=== PATIENT | female | born 1960 | race Caucasian/White ===

== ENCOUNTER 2017-09-01 11:00 | Outpatient (RCR) | payer OTHER, SELFPAY ==
[2017-08-26 10:49] VITALS: BP 194/107; PULSE 77; RESP 18; TEMP 37.1
--- NOTE | 2017-08-26 16:56 | PCM.WC.HP ---
(1) Diabetic foot ulcer Status: Acute Qualifiers: Diabetic foot ulcer location: toe Diabetes mellitus type: type 2 Laterality: left Non-pressure ulcer stage: with fat layer exposed Qualified Code(s): E11.621 - Type 2 diabetes mellitus with foot ulcer; L97.522 - Non-pressure chronic ulcer of other part of left foot with fat layer exposed; L97.522 - Non-pressure chronic ulcer of other part of left foot with fat layer exposed; L97.522 - Non-pressure chronic ulcer of other part of left foot with fat layer exposed; L97.522 - Non-pressure chronic ulcer of other part of left foot with fat layer exposed Code(s): E11.621 - Type 2 diabetes mellitus with foot ulcer; L97.509 - Non-pressure chronic ulcer of other part of unspecified foot with unspecified severity (2) Diabetes mellitus type 2 in obese Status: Chronic Code(s): E11.69 - Type 2 diabetes mellitus with other specified complication; E66.9 - Obesity, unspecified (3) Diabetic neuropathy Status: Chronic Code(s): E11.40 - Type 2 diabetes mellitus with diabetic neuropathy, unspecified History of Present Illness Date of Service: 08/26/17 Chief Complaint: Chronic recurrent left foot ulcer. History of Wound: Ms. Sullivan is a 57yo with PMH of hypertension, diabetes mellitus type 2 [id number], chronic left foot ulcer and diabetic neuropathy. She was referred here by primary care physician due to chronic recurrent nonhealing left foot ulcer. Initial episode was said to be about 5 years ago about a year after her diagnosis of diabetes. Had been managed by her primary care physician on several ocassions for recurrence however current episode has persisted for over 6 months. She has a history of callus over her left great toe and had been seen by podiatry. Appropriate footwear was recommended however patient's does report that she has not been compliant with this. She also walks around barefooted a lot and does not routinely inspect her foot. She reports good control of her A1c however last check was about 6 months ago and was said to be around 6. She denies any discharge from her left foot, chills, fever, nausea, vomiting or otherwise feeling of unwell. Past Medical History Past Medical History: Chronic Problems Diabetes mellitus type 2 in obese (Chronic) Diabetic neuropathy (Chronic) Allergies/Adverse Reactions: Allergies isradipine [From [place]GE[place]] Allergy (Verified 08/26/17 10:37) Unknown prochlorperazine [From Compazine] Allergy (Verified 08/26/17 10:37) Unknown Home Medications: Ambulatory Orders Medication Instructions Recorded Acetaminophen [Tylenol Extra 1,000 mg PO Q8H PRN 08/26/17 Strength] Amlodipine [Norvasc] 5 mg PO DAILY 08/26/17 Enalapril Maleate [Vasotec] 20 mg PO BID 08/26/17 Meloxicam 15 mg PO DAILY 08/26/17 Metformin HCl [Metformin HCl ER] 1,000 mg PO DAILY 08/26/17 Metoprolol Succinate 100 mg PO BID 08/26/17 Multivitamin [Daily Multiple 1 each PO DAILY 08/26/17 Vitamin] Tizanidine HCl 4 mg PO QHS PRN PRN 08/26/17 Triamcinolone Acetonide [Kenalog] 100 gm TP BID 08/26/17 Smoking Status: Never smoker Review of Systems Constitutional: Denies: Anorexia, Chills, Fever Eyes: Denies: Pain, Redness HEENT: Denies: Difficulty Hearing, Difficulty Swallowing Cardiovascular: Denies: Chest Pain, Chest Pressure, Chest Tightness Respiratory: Denies: Cough, Hemoptysis Gastrointestinal: Denies: Abdominal Pain, Hematemesis, Vomiting Skin: Denies: Jaundice, Pruritis Neurological: Denies: Blurred vision, Slurred speech, Confusion - Physical Exam Vital Signs Temp Pulse Resp BP 98.7 F 77 18 194/107 H 08/26/17 10:49 08/26/17 10:49 08/26/17 10:49 08/26/17 10:49 General: Alert, Oriented x3, Cooperative, No apparent distress HEENT: Atraumatic, Normocephalic Oral: Moist Mucosa Neck: Supple, No JVD Lungs: Clear to auscultation, Normal air movement Cardiovascular: Regular rate, Regular Rhythm, Normal S1, Normal S2 Extremities: No clubbing, No cyanosis, No edema Wound Measurements and Assessment WC - Nurse 1 - General Ulcer Measurement Start: 08/26/17 10:34 Freq: Status: Active Protocol: Activity Type Activity Date Activity User E-Sign Co-Sign Detail Recorded Client Recorded Date Recorded By Document 08/26/17 10:49 DL [id number] 08/26/17 11:20 DL 08/26/17 10:49 Wound Center Nurse 1 [Ulcer Assessment Protocol: WC.WD.LOC] #1 L plantar met head -Current Size (cm) - Length 0.3 -Current Size (cm) - Width 0.2 -Current Size (cm) - Depth 0.4 -Total Square Cm 0.06 -Photo Taken Yes -Epithelialization None Present -Maximum Distance #2 (cm) 0.2 -Circular Undermining Yes -Exudate Amt Small (1-33%) -Exudate Type Serosanguineous -Wound Margin Thickened -Granulation Amt Small (1-33%) -Granulation Quality [place] -Necrosis Amt None Present (0 %) -Structure Exposed N/A -Texture (Gisella-wound Skin Appearance) Callus -Moisture (Gisella-wound Skin Appearance No Abnormality ) -Color (Gisella-wound Skin Appearance) No Abnormality -Temperature (Gisella-wound Skin No Abnormality Appearance) (Pt Warm) -Ulcer Cleansing Rinsed/ Irrigated with Saline -Foul Odor after Cleansing No -Anesthetic Used 4% Lidocaine Solution - Nurse 2 - General Ulcer CM Notes Start: 08/26/17 10:34 Freq: Status: Active Protocol: Activity Type Activity Date Activity User E-Sign Co-Sign Detail Recorded Client Recorded Date Recorded By Document 08/26/17 12:06 [id number] 08/26/17 12:16 DV 08/26/17 12:06 Wound Center Nurse 2 [Procedure/Treatment] -Time 12:14 -Correct Patient Yes -Correct Side, Site, Position Yes -Correct Procedure Yes -Procedure Performed Yes -Type of Procedure Debridement -Clinical Debridement Subcutaneous -Post Debridement Size (cm) - Length 0.6 -Post Debridement Size (cm) - Width 0.4 -Post Debridement Size (cm) - Depth 0.2 -Total Square Cm 0.24 -Wound/Ulcer Outcome Not Healed -Ulcer Cleansing Rinsed/ Irrigated with Saline -Foul Odor after Cleansing No -Bioengineered Tissue No -Cetacaine [place] No -Bleeding Controlled with Pressure -Treatment Response Procedure Tolerated Well [See Physician Procedure note for Specifics] Pain Scale: 0-10 Numeric [Pain] -Is Patient Pain Free? Yes Musculoskeletal: No Muscle Wasting Lymphatic: No Cervical, Supraclavicular, or Inguinal Adenopathy Neurological: Cranial nerves II-XII grossly intact Psych/Mental Status: Normal Affect Debridement Note Post-Debridement Measurements/Treatment WC - Nurse 2 - General Ulcer CM Notes Start: 08/26/17 10:34 Freq: Status: Active Protocol: Activity Type Activity Date Activity User E-Sign Co-Sign Detail Recorded Client Recorded Date Recorded By Document 08/26/17 12:06 DV [id number] 08/26/17 12:16 DV 08/26/17 12:06 Wound Center Nurse 2 #1 L plantar met head -Time 12:14 -Correct Patient Yes -Correct Side, Site, Position Yes -Correct Procedure Yes -Procedure Performed Yes -Type of Procedure Debridement -Clinical Debridement Subcutaneous -Post Debridement Size (cm) - Length 0.6 -Post Debridement Size (cm) - Width 0.4 -Post Debridement Size (cm) - Depth 0.2 -Total Square Cm 0.24 -Wound/Ulcer Outcome Not Healed -Ulcer Cleansing Rinsed/ Irrigated with Saline -Foul Odor after Cleansing No -Bioengineered Tissue No -Cetacaine [place] No -Bleeding Controlled with Pressure -Treatment Response Procedure Tolerated Well Pain Scale: 0-10 Numeric Is Patient Pain Free? Yes Wound debrided: Left plantar great toe metatarsal head wound Wound Grade/Stage: Grade II Anesthesia Used: 4% Lidocaine Solution Depth: Down to and including healthy tissue, in the subcutaneous layer Percentage of wound debrided: 100 Instrument Used: 5mm curette Tissue Removed: Slough. Bleeding Controlled with: Compression and gauze Patient tolerated procedure well Assessment/Plan Assessment: Grade 2 diabetic foot ulcer of left great toe metatarsal head. Diabetes mellitus type 2. Poorly controlled blood pressure. Plan: Chronic recurrent diabetic foot ulcer. Had been to a home care attendant in the past however patient is noncompliant with directions. Wound was debrided today, procedure well-tolerated. Culture taken. X-ray also ordered. Routine labs including CBC, CMP, A1c, prealbumin and CRP also ordered. Promogran dressing daily to the wound. Advised to follow-up with home care attendant for appropriate footwear and diabetic foot management. High-protein diet. Wear foot wear at all times. Follow-up in 1 week. This note was generated with [employer] software. It may contain incorrect words, spelling, and punctuation that were not noted in checking the note before signing.
--- NOTE | 2017-08-26 17:07 | HP.PCM_ITS ---
(1) Diabetic foot ulcer Status: Acute Qualifiers: Diabetic foot ulcer location: toe Diabetes mellitus type: type 2 Laterality: left Non-pressure ulcer stage: with fat layer exposed Qualified Code(s): E11.621 - Type 2 diabetes mellitus with foot ulcer; L97.522 - Non- pressure chronic ulcer of other part of left foot with fat layer exposed; L97.522 - Non-pressure chronic ulcer of other part of left foot with fat layer exposed; L97.522 - Non-pressure chronic ulcer of other part of left foot with fat layer exposed; L97.522 - Non-pressure chronic ulcer of other part of left foot with fat layer exposed Code(s): E11.621 - Type 2 diabetes mellitus with foot ulcer; L97.509 - Non- pressure chronic ulcer of other part of unspecified foot with unspecified severity (2) Diabetes mellitus type 2 in obese Status: Chronic Code(s): E11.69 - Type 2 diabetes mellitus with other specified complication; E66.9 - Obesity, unspecified (3) Diabetic neuropathy Status: Chronic Code(s): E11.40 - Type 2 diabetes mellitus with diabetic neuropathy, unspecified History of Present Illness Date of Service: 08/26/17 Chief Complaint: Chronic recurrent left foot ulcer. History of Wound: Ms. Sullivan is a 57yo with PMH of hypertension, diabetes mellitus type 2 [id number], chronic left foot ulcer and diabetic neuropathy. She was referred here by primary care physician due to chronic recurrent nonhealing left foot ulcer. Initial episode was said to be about 5 years ago about a year after her diagnosis of diabetes. Had been managed by her primary care physician on several ocassions for recurrence however current episode has persisted for over 6 months. She has a history of callus over her left great toe and had been seen by podiatry. Appropriate footwear was recommended however patient's does report that she has not been compliant with this. She also walks around barefooted a lot and does not routinely inspect her foot. She reports good control of her A1c however last check was about 6 months ago and was said to be around 6. She denies any discharge from her left foot, chills, fever, nausea, vomiting or otherwise feeling of unwell. Past Medical History Past Medical History: Chronic Problems Diabetes mellitus type 2 in obese (Chronic) Diabetic neuropathy (Chronic) Allergies/Adverse Reactions: Allergies isradipine [From [place]] Allergy (Verified 08/26/17 10:37) Unknown prochlorperazine [From Compazine] Allergy (Verified 08/26/17 10:37) Unknown Home Medications: Ambulatory Orders Medication Instructions Recorded Acetaminophen [Tylenol Extra 1,000 mg PO Q8H PRN 08/26/17 Strength] Amlodipine [Norvasc] 5 mg PO DAILY 08/26/17 Enalapril Maleate [Vasotec] 20 mg PO BID 08/26/17 Meloxicam 15 mg PO DAILY 08/26/17 Metformin HCl [Metformin HCl ER] 1,000 mg PO DAILY 08/26/17 Metoprolol Succinate 100 mg PO BID 08/26/17 Multivitamin [Daily Multiple 1 each PO DAILY 08/26/17 Vitamin] Tizanidine HCl 4 mg PO QHS PRN PRN 08/26/17 Triamcinolone Acetonide [Kenalog] 100 gm TP BID 08/26/17 Smoking Status: Never smoker Review of Systems Constitutional: Denies: Anorexia, Chills, Fever Eyes: Denies: Pain, Redness HEENT: Denies: Difficulty Hearing, Difficulty Swallowing Cardiovascular: Denies: Chest Pain, Chest Pressure, Chest Tightness Respiratory: Denies: Cough, Hemoptysis Gastrointestinal: Denies: Abdominal Pain, Hematemesis, Vomiting Skin: Denies: Jaundice, Pruritis Neurological: Denies: Blurred vision, Slurred speech, Confusion - Physical Exam Vital Signs Temp Pulse Resp BP 98.7 F 77 18 194/107 H 08/26/17 10:49 08/26/17 10:49 08/26/17 10:49 08/26/17 10:49 General: Alert, Oriented x3, Cooperative, No apparent distress HEENT: Atraumatic, Normocephalic Oral: Moist Mucosa Neck: Supple, No JVD Lungs: Clear to auscultation, Normal air movement Cardiovascular: Regular rate, Regular Rhythm, Normal S1, Normal S2 Extremities: No clubbing, No cyanosis, No edema Wound Measurements and Assessment WC - Nurse 1 - General Ulcer Measurement Start: 08/26/17 10:34 Freq: Status: Active Protocol: Activity Type Activity Date Activity User E-Sign Co-Sign Detail Recorded Client Recorded Date Recorded By Document 08/26/17 10:49 DL [id number] 08/26/17 11:20 DL 08/26/17 10:49 Wound Center Nurse 1 [Ulcer Assessment Protocol: WC.WD.LOC] #1 L plantar met head -Current Size (cm) - Length 0.3 -Current Size (cm) - Width 0.2 -Current Size (cm) - Depth 0.4 -Total Square Cm 0.06 -Photo Taken Yes -Epithelialization None Present -Maximum Distance #2 (cm) 0.2 -Circular Undermining Yes -Exudate Amt Small (1-33%) -Exudate Type Serosanguineous -Wound Margin Thickened -Granulation Amt Small (1-33%) -Granulation Quality [place] -Necrosis Amt None Present (0 %) -Structure Exposed N/A -Texture (Gisella-wound Skin Appearance) Callus -Moisture ([place]is[place]-wound Skin Appearance No Abnormality ) -Color ([place]isella-wound Skin Appearance) No Abnormality -Temperature ([place]-wound Skin No Abnormality Appearance) (Pt Warm) -Ulcer Cleansing Rinsed/ Irrigated with Saline -Foul Odor after Cleansing No -Anesthetic Used 4% Lidocaine Solution - Nurse 2 - General Ulcer CM Notes Start: 08/26/17 10:34 Freq: Status: Active Protocol: Activity Type Activity Date Activity User E-Sign Co-Sign Detail Recorded Client Recorded Date Recorded By Document 08/26/17 12:06 [id number] 08/26/17 12:16 DV 08/26/17 12:06 Wound Center Nurse 2 [Procedure/Treatment] -Time 12:14 -Correct Patient Yes -Correct Side, Site, Position Yes -Correct Procedure Yes -Procedure Performed Yes -Type of Procedure Debridement -Clinical Debridement Subcutaneous -Post Debridement Size (cm) - Length 0.6 -Post Debridement Size (cm) - Width 0.4 -Post Debridement Size (cm) - Depth 0.2 -Total Square Cm 0.24 -Wound/Ulcer Outcome Not Healed -Ulcer Cleansing Rinsed/ Irrigated with Saline -Foul Odor after Cleansing No -Bioengineered Tissue No -Cetacaine [place] No -Bleeding Controlled with Pressure -Treatment Response Procedure Tolerated Well [See Physician Procedure note for Specifics] Pain Scale: 0-10 Numeric [Pain] -Is Patient Pain Free? Yes Musculoskeletal: No Muscle Wasting Lymphatic: No Cervical, Supraclavicular, or Inguinal Adenopathy Neurological: Cranial nerves II-XII grossly intact Psych/Mental Status: Normal Affect Debridement Note Post-Debridement Measurements/Treatment WC - Nurse 2 - General Ulcer CM Notes Start: 08/26/17 10:34 Freq: Status: Active Protocol: Activity Type Activity Date Activity User E-Sign Co-Sign Detail Recorded Client Recorded Date Recorded By Document 08/26/17 12:06 DV [id number] 08/26/17 12:16 DV 08/26/17 12:06 Wound Center Nurse 2 #1 L plantar met head -Time 12:14 -Correct Patient Yes -Correct Side, Site, Position Yes -Correct Procedure Yes -Procedure Performed Yes -Type of Procedure Debridement -Clinical Debridement Subcutaneous -Post Debridement Size (cm) - Length 0.6 -Post Debridement Size (cm) - Width 0.4 -Post Debridement Size (cm) - Depth 0.2 -Total Square Cm 0.24 -Wound/Ulcer Outcome Not Healed -Ulcer Cleansing Rinsed/ Irrigated with Saline -Foul Odor after Cleansing No -Bioengineered Tissue No -Cetacaine [place] No -Bleeding Controlled with Pressure -Treatment Response Procedure Tolerated Well Pain Scale: 0-10 Numeric Is Patient Pain Free? Yes Wound debrided: Left plantar great toe metatarsal head wound Wound Grade/Stage: Grade II Anesthesia Used: 4% Lidocaine Solution Depth: Down to and including healthy tissue, in the subcutaneous layer Percentage of wound debrided: 100 Instrument Used: 5mm curette Tissue Removed: Slough. Bleeding Controlled with: Compression and gauze Patient tolerated procedure well Assessment/Plan Assessment: Grade 2 diabetic foot ulcer of left great toe metatarsal head. Diabetes mellitus type 2. Poorly controlled blood pressure. Plan: Chronic recurrent diabetic foot ulcer. Had been to a commutator undercutter in the past however patient is noncompliant with directions. Wound was debrided today , procedure well-tolerated. Culture taken. X-ray also ordered. Routine labs including CBC, CMP, A1c, prealbumin and CRP also ordered. Promogran dressing daily to the wound. Advised to follow-up with commutator undercutter for appropriate footwear and diabetic foot management. High-protein diet. Wear foot wear at all times. Follow-up in 1 week. This note was generated with [employer] software. It may contain incorrect words, spelling, and punctuation that were not noted in checking the note before signing.
[2017-09-01 10:56] VITALS: BP 163/88; PULSE 81; RESP 16; TEMP 37
--- NOTE | 2017-09-01 14:28 | PCM.WC.PN ---
(1) Diabetic foot ulcer Status: Acute Current Visit: Yes Qualifiers: Diabetic foot ulcer location: toe Diabetes mellitus type: type 2 Laterality: left Non-pressure ulcer stage: with fat layer exposed Qualified Code(s): E11.621 - Type 2 diabetes mellitus with foot ulcer; L97.522 - Non-pressure chronic ulcer of other part of left foot with fat layer exposed; L97.522 - Non-pressure chronic ulcer of other part of left foot with fat layer exposed; L97.522 - Non-pressure chronic ulcer of other part of left foot with fat layer exposed; L97.522 - Non-pressure chronic ulcer of other part of left foot with fat layer exposed Code(s): E11.621 - Type 2 diabetes mellitus with foot ulcer; L97.509 - Non-pressure chronic ulcer of other part of unspecified foot with unspecified severity (2) Diabetes mellitus type 2 in obese Status: Chronic Current Visit: No Code(s): E11.69 - Type 2 diabetes mellitus with other specified complication; E66.9 - Obesity, unspecified (3) Diabetic neuropathy Status: Chronic Current Visit: No Code(s): E11.40 - Type 2 diabetes mellitus with diabetic neuropathy, unspecified Type of Wound Date of Service: 09/01/17 Chief Complaint: Chronic recurrent left foot ulcer. History of Wound: Ms. Sullivan is a 57yo with PMH of hypertension, diabetes mellitus type 2 [id number], chronic left foot ulcer and diabetic neuropathy. She was referred here by primary care physician due to chronic recurrent nonhealing left foot ulcer. Initial episode was said to be about 5 years ago about a year after her diagnosis of diabetes. Had been managed by her primary care physician on several ocassions for recurrence however current episode has persisted for over 6 months. She has a history of callus over her left great toe and had been seen by podiatry. Appropriate footwear was recommended however patient's does report that she has not been compliant with this. She also walks around barefooted a lot and does not routinely inspect her foot. She reports good control of her A1c however last check was about 6 months ago and was said to be around 6. She denies any discharge from her left foot, chills, fever, nausea, vomiting or otherwise feeling of unwell. Progress of Wound: Stable. No new complaints at this time. Yet to follow up with podiatry. - Physical Exam Vital Signs Temp Pulse Resp BP 98.6 F 81 16 163/88 H 09/01/17 10:56 09/01/17 10:56 09/01/17 10:56 09/01/17 10:56 General: Alert, Oriented x3, Cooperative, No apparent distress HEENT: Atraumatic, Normocephalic Oral: Moist Mucosa Neck: Supple, No JVD Lungs: Normal air movement Cardiovascular: Regular rate Wound Measurements and Assessment - Nurse 1 - General Ulcer Measurement Start: 08/26/17 10:34 Freq: Status: Active Protocol: Activity Type Activity Date Activity User E-Sign Co-Sign Detail Recorded Client Recorded Date Recorded By Document 09/01/17 10:56 [facility] [id number] 09/01/17 11:09 [facility] 09/01/17 10:56 Wound Center Nurse 1 [Ulcer Assessment Protocol: WC.WD.LOC] #1 L plantar met head -Combined with other wound No -Current Size (cm) - Length 0.6 -Current Size (cm) - Width 0.4 -Current Size (cm) - Depth 0.4 -Total Square Cm 0.24 -Photo Taken No -Epithelialization None Present -Tunneling No -Undermining/Tunneling No -Exudate Amt Small (1-33%) -Exudate Type Serosanguineous -Wound Margin Distinct, Outline Attached -Granulation Amt Large (67-100%) -Granulation Quality Red -Slough/Fibrin No -Necrosis Amt None Present (0 %) -Structure Exposed N/A -Texture (Gisella-wound Skin Appearance) Callus Scarring -Moisture (Gisella-wound Skin Appearance Dry/Scaly ) -Color (Gisella-wound Skin Appearance) Assessed -Temperature (Gisella-wound Skin No Abnormality Appearance) (Pt Warm) -Tenderness on Palpation (Gisella-wound No Skin Appearance) -Ulcer Cleansing Rinsed/ Irrigated with Saline -Foul Odor after Cleansing No -Anesthetic Used 5% Lidocaine Gel - Nurse 2 - General Ulcer CM Notes Start: 08/26/17 10:34 Freq: Status: Active Protocol: Activity Type Activity Date Activity User E-Sign Co-Sign Detail Recorded Client Recorded Date Recorded By Document 09/01/17 11:44 DV [id number] 09/01/17 11:56 DV 09/01/17 11:44 Wound Center Nurse 2 [Procedure/Treatment] -Time 11:45 -Correct Patient Yes -Correct Side, Site, Position Yes -Correct Procedure Yes -Procedure Performed Yes -Type of Procedure Debridement -Clinical Debridement Subcutaneous -Post Debridement Size (cm) - Length 0.5 -Post Debridement Size (cm) - Width 0.5 -Post Debridement Size (cm) - Depth 0.5 -Total Square Cm 0.25 -Wound/Ulcer Outcome Not Healed -Ulcer Cleansing Rinsed/ Irrigated with Saline -Foul Odor after Cleansing No -Bioengineered Tissue No -Cetacaine [place] No -Bleeding Controlled with Pressure -Treatment Response Procedure Tolerated Well [See Physician Procedure note for Specifics] Pain Scale: 0-10 Numeric [Pain] -Is Patient Pain Free? Yes Debridement Note Post-Debridement Measurements/Treatment WC - Nurse 2 - General Ulcer CM Notes Start: 08/26/17 10:34 Freq: Status: Active Protocol: Activity Type Activity Date Activity User E-Sign Co-Sign Detail Recorded Client Recorded Date Recorded By Document 08/26/17 12:06 DV [id number] 08/26/17 12:16 DV Document 09/01/17 11:44 DV [id number] 09/01/17 11:56 DV 08/26/17 09/01/17 12:06 11:44 Wound Center Nurse 2 #1 L plantar met head -Time 12:14 11:45 -Correct Patient Yes Yes -Correct Side, Site, Position Yes Yes -Correct Procedure Yes Yes -Procedure Performed Yes Yes -Type of Procedure Debridement Debridement -Clinical Debridement Subcutaneous Subcutaneous -Post Debridement Size (cm) - Length 0.6 0.5 -Post Debridement Size (cm) - Width 0.4 0.5 -Post Debridement Size (cm) - Depth 0.2 0.5 -Total Square Cm 0.24 0.25 -Wound/Ulcer Outcome Not Healed Not Healed -Ulcer Cleansing Rinsed/ Rinsed/ Irrigated with Irrigated with Saline Saline -Foul Odor after Cleansing No No -Bioengineered Tissue No No -Cetacaine [place] No No -Bleeding Controlled with Pressure Pressure -Treatment Response Procedure Procedure Tolerated Well Tolerated Well Pain Scale: 0-10 Numeric Is Patient Pain Free? Yes Yes Wound debrided: Left foot wound. Wound Grade/Stage: DFU Grade II Type of Debridement: Excisional debridement Anesthesia Used: 5% Lidocaine Gel Depth: Down to and including healthy tissue, in the subcutaneous layer Percentage of wound debrided: 100 Instrument Used: 5mm curette Tissue Removed: Slough, Callus. Amount of bleeding with debridement: Mild Bleeding Controlled with: Pressure Patient tolerated procedure well Assessment/Plan Active Problems Diabetic foot ulcer (Acute) Assessment: Grade 2 diabetic foot ulcer of left great toe metatarsal head. Diabetes mellitus type 2. Poorly controlled blood pressure. Plan: Debridement and scraping of the callus was done today. Procedure well-tolerated. Patient is yet to follow-up with a assembler mechanical ordnance she plans to within the week. A1c of 7.4. I did discuss with the patient on the need to adequately and optimally control her sugars. She is open to this. X-ray also not suggestive of osteomyelitis. Continue Promogran dressing daily. Protein rich diet. Wear foot wear at all times. Follow-up in 1 week. This note was generated with [employer] dictation software. It may contain incorrect words, spelling, and punctuation that were not noted in checking the note before signing.
--- NOTE | 2017-09-01 14:32 | PN.PCM_ITS ---
(1) Diabetic foot ulcer Status: Acute Current Visit: Yes Qualifiers: Diabetic foot ulcer location: toe Diabetes mellitus type: type 2 Laterality: left Non-pressure ulcer stage: with fat layer exposed Qualified Code(s): E11.621 - Type 2 diabetes mellitus with foot ulcer; L97.522 - Non- pressure chronic ulcer of other part of left foot with fat layer exposed; L97.522 - Non-pressure chronic ulcer of other part of left foot with fat layer exposed; L97.522 - Non-pressure chronic ulcer of other part of left foot with fat layer exposed; L97.522 - Non-pressure chronic ulcer of other part of left foot with fat layer exposed Code(s): E11.621 - Type 2 diabetes mellitus with foot ulcer; L97.509 - Non- pressure chronic ulcer of other part of unspecified foot with unspecified severity (2) Diabetes mellitus type 2 in obese Status: Chronic Current Visit: No Code(s): E11.69 - Type 2 diabetes mellitus with other specified complication; E66.9 - Obesity, unspecified (3) Diabetic neuropathy Status: Chronic Current Visit: No Code(s): E11.40 - Type 2 diabetes mellitus with diabetic neuropathy, unspecified Type of Wound Date of Service: 09/01/17 Chief Complaint: Chronic recurrent left foot ulcer. History of Wound: Ms. Sullivan is a 57yo with PMH of hypertension, diabetes mellitus type 2 [id number], chronic left foot ulcer and diabetic neuropathy. She was referred here by primary care physician due to chronic recurrent nonhealing left foot ulcer. Initial episode was said to be about 5 years ago about a year after her diagnosis of diabetes. Had been managed by her primary care physician on several ocassions for recurrence however current episode has persisted for over 6 months. She has a history of callus over her left great toe and had been seen by podiatry. Appropriate footwear was recommended however patient's does report that she has not been compliant with this. She also walks around barefooted a lot and does not routinely inspect her foot. She reports good control of her A1c however last check was about 6 months ago and was said to be around 6. She denies any discharge from her left foot, chills, fever, nausea, vomiting or otherwise feeling of unwell. Progress of Wound: Stable. No new complaints at this time. Yet to follow up with podiatry. - Physical Exam Vital Signs Temp Pulse Resp BP 98.6 F 81 16 163/88 H 09/01/17 10:56 09/01/17 10:56 09/01/17 10:56 09/01/17 10:56 General: Alert, Oriented x3, Cooperative, No apparent distress HEENT: Atraumatic, Normocephalic Oral: Moist Mucosa Neck: Supple, No JVD Lungs: Normal air movement Cardiovascular: Regular rate Wound Measurements and Assessment - Nurse 1 - General Ulcer Measurement Start: 08/26/17 10:34 Freq: Status: Active Protocol: Activity Type Activity Date Activity User E-Sign Co-Sign Detail Recorded Client Recorded Date Recorded By Document 09/01/17 10:56 [facility] [id number] 09/01/17 11:09 [facility] 09/01/17 10:56 Wound Center Nurse 1 [Ulcer Assessment Protocol: WC.WD.LOC] #1 L plantar met head -Combined with other wound No -Current Size (cm) - Length 0.6 -Current Size (cm) - Width 0.4 -Current Size (cm) - Depth 0.4 -Total Square Cm 0.24 -Photo Taken No -Epithelialization None Present -Tunneling No -Undermining/Tunneling No -Exudate Amt Small (1-33%) -Exudate Type Serosanguineous -Wound Margin Distinct, Outline Attached -Granulation Amt Large (67-100%) -Granulation Quality Red -Slough/Fibrin No -Necrosis Amt None Present (0 %) -Structure Exposed N/A -Texture (Gisella-wound Skin Appearance) Callus Scarring -Moisture (Gisella-wound Skin Appearance Dry/Scaly ) -Color (Gisella-wound Skin Appearance) Assessed -Temperature (Gisella-wound Skin No Abnormality Appearance) (Pt Warm) -Tenderness on Palpation (Gisella-wound No Skin Appearance) -Ulcer Cleansing Rinsed/ Irrigated with Saline -Foul Odor after Cleansing No -Anesthetic Used 5% Lidocaine Gel - Nurse 2 - General Ulcer CM Notes Start: 08/26/17 10:34 Freq: Status: Active Protocol: Activity Type Activity Date Activity User E-Sign Co-Sign Detail Recorded Client Recorded Date Recorded By Document 09/01/17 11:44 DV [id number] 09/01/17 11:56 DV 09/01/17 11:44 Wound Center Nurse 2 [Procedure/Treatment] -Time 11:45 -Correct Patient Yes -Correct Side, Site, Position Yes -Correct Procedure Yes -Procedure Performed Yes -Type of Procedure Debridement -Clinical Debridement Subcutaneous -Post Debridement Size (cm) - Length 0.5 -Post Debridement Size (cm) - Width 0.5 -Post Debridement Size (cm) - Depth 0.5 -Total Square Cm 0.25 -Wound/Ulcer Outcome Not Healed -Ulcer Cleansing Rinsed/ Irrigated with Saline -Foul Odor after Cleansing No -Bioengineered Tissue No -Cetacaine [place] No -Bleeding Controlled with Pressure -Treatment Response Procedure Tolerated Well [See Physician Procedure note for Specifics] Pain Scale: 0-10 Numeric [Pain] -Is Patient Pain Free? Yes Debridement Note Post-Debridement Measurements/Treatment WC - Nurse 2 - General Ulcer CM Notes Start: 08/26/17 10:34 Freq: Status: Active Protocol: Activity Type Activity Date Activity User E-Sign Co-Sign Detail Recorded Client Recorded Date Recorded By Document 08/26/17 12:06 DV [id number] 08/26/17 12:16 DV Document 09/01/17 11:44 DV [id number] 09/01/17 11:56 DV 08/26/17 09/01/17 12:06 11:44 Wound Center Nurse 2 #1 L plantar met head -Time 12:14 11:45 -Correct Patient Yes Yes -Correct Side, Site, Position Yes Yes -Correct Procedure Yes Yes -Procedure Performed Yes Yes -Type of Procedure Debridement Debridement -Clinical Debridement Subcutaneous Subcutaneous -Post Debridement Size (cm) - Length 0.6 0.5 -Post Debridement Size (cm) - Width 0.4 0.5 -Post Debridement Size (cm) - Depth 0.2 0.5 -Total Square Cm 0.24 0.25 -Wound/Ulcer Outcome Not Healed Not Healed -Ulcer Cleansing Rinsed/ Rinsed/ Irrigated with Irrigated with Saline Saline -Foul Odor after Cleansing No No -Bioengineered Tissue No No -Cetacaine [place] No No -Bleeding Controlled with Pressure Pressure -Treatment Response Procedure Procedure Tolerated Well Tolerated Well Pain Scale: 0-10 Numeric Is Patient Pain Free? Yes Yes Wound debrided: Left foot wound. Wound Grade/Stage: DFU Grade II Type of Debridement: Excisional debridement Anesthesia Used: 5% Lidocaine Gel Depth: Down to and including healthy tissue, in the subcutaneous layer Percentage of wound debrided: 100 Instrument Used: 5mm curette Tissue Removed: Slough, Callus. Amount of bleeding with debridement: Mild Bleeding Controlled with: Pressure Patient tolerated procedure well Assessment/Plan Active Problems Diabetic foot ulcer (Acute) Assessment: Grade 2 diabetic foot ulcer of left great toe metatarsal head. Diabetes mellitus type 2. Poorly controlled blood pressure. Plan: Debridement and scraping of the callus was done today. Procedure well- tolerated. Patient is yet to follow-up with a traffic survey technician she plans to within the week. A1c of 7.4. I did discuss with the patient on the need to adequately and optimally control her sugars. She is open to this. X-ray also not suggestive of osteomyelitis. Continue Promogran dressing daily. Protein rich diet. Wear foot wear at all times. Follow-up in 1 week. This note was generated with [employer] dictation software. It may contain incorrect words, spelling, and punctuation that were not noted in checking the note before signing.
== END 2017-09-05 23:59 ==
LOC: WC 11:00
PROVIDERS: Family Provider Family Medicine; PCP Family Medicine; Visit Provider Internal Medicine
DX: E11.621 Type 2 diabetes mellitus with foot ulcer (principal); E11.40 Type 2 diabetes mellitus with diabetic neuropathy, unspecified; L97.522 Non-pressure chronic ulcer of other part of left foot with fat layer exposed; E66.9 Obesity, unspecified; Z71.3 Dietary counseling and surveillance; Z91.19 Patient's noncompliance with other medical treatment and regimen
CPT/HCPCS: 11042; 87070; 87075; 87077; 87186; 87205; 99213; G0463

== ENCOUNTER 2017-09-30 08:30 | Outpatient (RCR) | payer OTHER, SELFPAY ==
[2017-09-06 01:41] VITALS: BP 163/88; PULSE 81; RESP 16; TEMP 37
[2017-09-09 08:29] VITALS: BP 164/94; PULSE 80; RESP 18; TEMP 37
--- NOTE | 2017-09-09 09:37 | PCM.WC.PN ---
(1) Diabetic foot ulcer Status: Acute Qualifiers: Code(s): E11.621 - Type 2 diabetes mellitus with foot ulcer; L97.509 - Non-pressure chronic ulcer of other part of unspecified foot with unspecified severity (2) Diabetes mellitus type 2 in obese Status: Chronic Code(s): E11.69 - Type 2 diabetes mellitus with other specified complication; E66.9 - Obesity, unspecified (3) Diabetic neuropathy Status: Chronic Code(s): E11.40 - Type 2 diabetes mellitus with diabetic neuropathy, unspecified Type of Wound Date of Service: 09/09/17 Chief Complaint: Chronic recurrent left foot ulcer. History of Wound: Ms. Sullivan is a 57yo with PMH of hypertension, diabetes mellitus type 2 [id number], chronic left foot ulcer and diabetic neuropathy. She was referred here by primary care physician due to chronic recurrent nonhealing left foot ulcer. Initial episode was said to be about 5 years ago about a year after her diagnosis of diabetes. Had been managed by her primary care physician on several ocassions for recurrence however current episode has persisted for over 6 months. She has a history of callus over her left great toe and had been seen by podiatry. Appropriate footwear was recommended however patient's does report that she has not been compliant with this. She also walks around barefooted a lot and does not routinely inspect her foot. She reports good control of her A1c however last check was about 6 months ago and was said to be around 6. She denies any discharge from her left foot, chills, fever, nausea, vomiting or otherwise feeling of unwell. Progress of Wound: Stable. No new complaints at this time. Followed up with Dr. Merlos. Started an offloading boot. - Physical Exam Vital Signs Temp Pulse Resp BP 98.6 F 80 18 164/94 H 09/09/17 08:29 09/09/17 08:29 09/09/17 08:29 09/09/17 08:29 General: Alert, Oriented x3, Cooperative, No apparent distress HEENT: Atraumatic, Normocephalic Oral: Moist Mucosa Neck: Supple Lungs: Normal air movement Cardiovascular: Regular rate Extremities: No clubbing, No cyanosis Wound Measurements and Assessment WC - Nurse 1 - General Ulcer Measurement Start: 09/09/17 08:29 Freq: Status: Active Protocol: Activity Type Activity Date Activity User E-Sign Co-Sign Detail Recorded Client Recorded Date Recorded By Document 09/09/17 08:29 DL [id number] 09/09/17 08:39 DL 09/09/17 08:29 Wound Center Nurse 1 [Ulcer Assessment Protocol: WC.WD.LOC] #1 L plantar met head -Current Size (cm) - Length 0.6 -Current Size (cm) - Width 0.5 -Current Size (cm) - Depth 0.2 -Total Square Cm 0.30 -Photo Taken No -Exudate Amt None Present (0 %) -Wound Margin Distinct, Outline Attached -Granulation Amt Large (67-100%) -Granulation Quality Red -Necrosis Amt Small (1-33%) -Necrotic Tissue Type Adherent Slough -Structure Exposed N/A -Texture (Gisella-wound Skin Appearance) No Abnormality -Moisture (Gisella-wound Skin Appearance No Abnormality ) -Color (Gisella-wound Skin Appearance) No Abnormality -Temperature (Gisella-wound Skin No Abnormality Appearance) (Pt Warm) -Ulcer Cleansing Rinsed/ Irrigated with Saline -Foul Odor after Cleansing No -Anesthetic Used 4% Lidocaine Solution - Nurse 2 - General Ulcer CM Notes Start: 09/09/17 08:29 Freq: Status: Active Protocol: Activity Type Activity Date Activity User E-Sign Co-Sign Detail Recorded Client Recorded Date Recorded By Document 09/09/17 08:58 DV [id number] 09/09/17 09:00 DV 09/09/17 08:58 Wound Center Nurse 2 [Procedure/Treatment] -Time 08:59 -Correct Patient Yes -Correct Side, Site, Position Yes -Correct Procedure Yes -Procedure Performed Yes -Type of Procedure Debridement -Clinical Debridement Subcutaneous -Post Debridement Size (cm) - Length 0.7 -Post Debridement Size (cm) - Width 0.5 -Post Debridement Size (cm) - Depth 0.2 -Total Square Cm 0.35 -Wound/Ulcer Outcome Not Healed -Ulcer Cleansing Rinsed/ Irrigated with Saline -Foul Odor after Cleansing No -Bioengineered Tissue No -Cetacaine [place] No -Bleeding Controlled with Pressure -Treatment Response Procedure Tolerated Well [See Physician Procedure note for Specifics] Pain Scale: 0-10 Numeric [Pain] -Is Patient Pain Free? Yes Musculoskeletal: No Muscle Wasting Neurological: Cranial nerves II-XII grossly intact Debridement Note Post-Debridement Measurements/Treatment WC - Nurse 2 - General Ulcer CM Notes Start: 09/09/17 08:29 Freq: Status: Active Protocol: Activity Type Activity Date Activity User E-Sign Co-Sign Detail Recorded Client Recorded Date Recorded By Document 09/09/17 08:58 DV [id number] 09/09/17 09:00 DV 09/09/17 08:58 Wound Center Nurse 2 #1 L plantar met head -Time 08:59 -Correct Patient Yes -Correct Side, Site, Position Yes -Correct Procedure Yes -Procedure Performed Yes -Type of Procedure Debridement -Clinical Debridement Subcutaneous -Post Debridement Size (cm) - Length 0.7 -Post Debridement Size (cm) - Width 0.5 -Post Debridement Size (cm) - Depth 0.2 -Total Square Cm 0.35 -Wound/Ulcer Outcome Not Healed -Ulcer Cleansing Rinsed/ Irrigated with Saline -Foul Odor after Cleansing No -Bioengineered Tissue No -Cetacaine [place] No -Bleeding Controlled with Pressure -Treatment Response Procedure Tolerated Well Pain Scale: 0-10 Numeric Is Patient Pain Free? Yes Wound debrided: Left Foot Plantar Ulcer Wound Grade/Stage: [place] Grade I Type of Debridement: Excisional debridement Anesthesia Used: 4% Lidocaine Solution Depth: Down to and including healthy tissue, in the subcutaneous layer Percentage of wound debrided: 100 Instrument Used: 5mm curette Tissue Removed: Slough, Callus. Amount of bleeding with debridement: Mild Bleeding Controlled with: Pressure Patient tolerated procedure well Assessment/Plan Assessment: Grade 1 diabetic foot ulcer of left great toe metatarsal head. Diabetes mellitus type 2. Poorly controlled blood pressure. Plan: Wound has remained stable so far. Did follow-up with podiatry and now has an offloading boot which she attests to wearing daily. Also followed up with her primary care physician and has had adjustments to her diabetes medications. Continue Promogran dressing daily. Continue protein rich diet. Continue antibiotics to complete 2 weeks. Wear foot wear at all times. Follow-up in 1 week. This note was generated with [employer] dictation software. It may contain incorrect words, spelling, and punctuation that were not noted in checking the note before signing.
--- NOTE | 2017-09-09 09:44 | PN.PCM_ITS ---
(1) Diabetic foot ulcer Status: Acute Qualifiers: Code(s): E11.621 - Type 2 diabetes mellitus with foot ulcer; L97.509 - Non- pressure chronic ulcer of other part of unspecified foot with unspecified severity (2) Diabetes mellitus type 2 in obese Status: Chronic Code(s): E11.69 - Type 2 diabetes mellitus with other specified complication; E66.9 - Obesity, unspecified (3) Diabetic neuropathy Status: Chronic Code(s): E11.40 - Type 2 diabetes mellitus with diabetic neuropathy, unspecified Type of Wound Date of Service: 09/09/17 Chief Complaint: Chronic recurrent left foot ulcer. History of Wound: Ms. Sullivan is a 57yo with PMH of hypertension, diabetes mellitus type 2 [id number], chronic left foot ulcer and diabetic neuropathy. She was referred here by primary care physician due to chronic recurrent nonhealing left foot ulcer. Initial episode was said to be about 5 years ago about a year after her diagnosis of diabetes. Had been managed by her primary care physician on several ocassions for recurrence however current episode has persisted for over 6 months. She has a history of callus over her left great toe and had been seen by podiatry. Appropriate footwear was recommended however patient's does report that she has not been compliant with this. She also walks around barefooted a lot and does not routinely inspect her foot. She reports good control of her A1c however last check was about 6 months ago and was said to be around 6. She denies any discharge from her left foot, chills, fever, nausea, vomiting or otherwise feeling of unwell. Progress of Wound: Stable. No new complaints at this time. Followed up with Dr. Merlos. Started an offloading boot. - Physical Exam Vital Signs Temp Pulse Resp BP 98.6 F 80 18 164/94 H 09/09/17 08:29 09/09/17 08:29 09/09/17 08:29 09/09/17 08:29 General: Alert, Oriented x3, Cooperative, No apparent distress HEENT: Atraumatic, Normocephalic Oral: Moist Mucosa Neck: Supple Lungs: Normal air movement Cardiovascular: Regular rate Extremities: No clubbing, No cyanosis Wound Measurements and Assessment WC - Nurse 1 - General Ulcer Measurement Start: 09/09/17 08:29 Freq: Status: Active Protocol: Activity Type Activity Date Activity User E-Sign Co-Sign Detail Recorded Client Recorded Date Recorded By Document 09/09/17 08:29 DL [id number] 09/09/17 08:39 DL 09/09/17 08:29 Wound Center Nurse 1 [Ulcer Assessment Protocol: WC.WD.LOC] #1 L plantar met head -Current Size (cm) - Length 0.6 -Current Size (cm) - Width 0.5 -Current Size (cm) - Depth 0.2 -Total Square Cm 0.30 -Photo Taken No -Exudate Amt None Present (0 %) -Wound Margin Distinct, Outline Attached -Granulation Amt Large (67-100%) -Granulation Quality Red -Necrosis Amt Small (1-33%) -Necrotic Tissue Type Adherent Slough -Structure Exposed N/A -Texture (Gisella-wound Skin Appearance) No Abnormality -Moisture (Gisella-wound Skin Appearance No Abnormality ) -Color (Gisella-wound Skin Appearance) No Abnormality -Temperature (Gisella-wound Skin No Abnormality Appearance) (Pt Warm) -Ulcer Cleansing Rinsed/ Irrigated with Saline -Foul Odor after Cleansing No -Anesthetic Used 4% Lidocaine Solution - Nurse 2 - General Ulcer CM Notes Start: 09/09/17 08:29 Freq: Status: Active Protocol: Activity Type Activity Date Activity User E-Sign Co-Sign Detail Recorded Client Recorded Date Recorded By Document 09/09/17 08:58 DV [id number] 09/09/17 09:00 DV 09/09/17 08:58 Wound Center Nurse 2 [Procedure/Treatment] -Time 08:59 -Correct Patient Yes -Correct Side, Site, Position Yes -Correct Procedure Yes -Procedure Performed Yes -Type of Procedure Debridement -Clinical Debridement Subcutaneous -Post Debridement Size (cm) - Length 0.7 -Post Debridement Size (cm) - Width 0.5 -Post Debridement Size (cm) - Depth 0.2 -Total Square Cm 0.35 -Wound/Ulcer Outcome Not Healed -Ulcer Cleansing Rinsed/ Irrigated with Saline -Foul Odor after Cleansing No -Bioengineered Tissue No -Cetacaine [place] No -Bleeding Controlled with Pressure -Treatment Response Procedure Tolerated Well [See Physician Procedure note for Specifics] Pain Scale: 0-10 Numeric [Pain] -Is Patient Pain Free? Yes Musculoskeletal: No Muscle Wasting Neurological: Cranial nerves II-XII grossly intact Debridement Note Post-Debridement Measurements/Treatment WC - Nurse 2 - General Ulcer CM Notes Start: 09/09/17 08:29 Freq: Status: Active Protocol: Activity Type Activity Date Activity User E-Sign Co-Sign Detail Recorded Client Recorded Date Recorded By Document 09/09/17 08:58 DV [id number] 09/09/17 09:00 DV 09/09/17 08:58 Wound Center Nurse 2 #1 L plantar met head -Time 08:59 -Correct Patient Yes -Correct Side, Site, Position Yes -Correct Procedure Yes -Procedure Performed Yes -Type of Procedure Debridement -Clinical Debridement Subcutaneous -Post Debridement Size (cm) - Length 0.7 -Post Debridement Size (cm) - Width 0.5 -Post Debridement Size (cm) - Depth 0.2 -Total Square Cm 0.35 -Wound/Ulcer Outcome Not Healed -Ulcer Cleansing Rinsed/ Irrigated with Saline -Foul Odor after Cleansing No -Bioengineered Tissue No -Cetacaine [place] No -Bleeding Controlled with Pressure -Treatment Response Procedure Tolerated Well Pain Scale: 0-10 Numeric Is Patient Pain Free? Yes Wound debrided: Left Foot Plantar Ulcer Wound Grade/Stage: [place] Grade I Type of Debridement: Excisional debridement Anesthesia Used: 4% Lidocaine Solution Depth: Down to and including healthy tissue, in the subcutaneous layer Percentage of wound debrided: 100 Instrument Used: 5mm curette Tissue Removed: Slough, Callus. Amount of bleeding with debridement: Mild Bleeding Controlled with: Pressure Patient tolerated procedure well Assessment/Plan Assessment: Grade 1 diabetic foot ulcer of left great toe metatarsal head. Diabetes mellitus type 2. Poorly controlled blood pressure. Plan: Wound has remained stable so far. Did follow-up with podiatry and now has an offloading boot which she attests to wearing daily. Also followed up with her primary care physician and has had adjustments to her diabetes medications. Continue Promogran dressing daily. Continue protein rich diet. Continue antibiotics to complete 2 weeks. Wear foot wear at all times. Follow- up in 1 week. This note was generated with [employer] dictation software. It may contain incorrect words, spelling, and punctuation that were not noted in checking the note before signing.
[2017-09-16 08:35] VITALS: BP 152/98; PULSE 76; RESP 18; TEMP 36.6
--- NOTE | 2017-09-16 19:06 | PCM.WC.PN ---
(1) Diabetic foot ulcer Status: Acute Current Visit: No Qualifiers: Code(s): E11.621 - Type 2 diabetes mellitus with foot ulcer; L97.509 - Non-pressure chronic ulcer of other part of unspecified foot with unspecified severity (2) Diabetes mellitus type 2 in obese Status: Chronic Current Visit: No Code(s): E11.69 - Type 2 diabetes mellitus with other specified complication; E66.9 - Obesity, unspecified (3) Diabetic neuropathy Status: Chronic Current Visit: No Code(s): E11.40 - Type 2 diabetes mellitus with diabetic neuropathy, unspecified Type of Wound Date of Service: 09/16/17 Chief Complaint: Chronic recurrent left foot ulcer. History of Wound: Ms. Sullivan is a 57yo with PMH of hypertension, diabetes mellitus type 2 [id number], chronic left foot ulcer and diabetic neuropathy. She was referred here by primary care physician due to chronic recurrent nonhealing left foot ulcer. Initial episode was said to be about 5 years ago about a year after her diagnosis of diabetes. Had been managed by her primary care physician on several ocassions for recurrence however current episode has persisted for over 6 months. She has a history of callus over her left great toe and had been seen by podiatry. Appropriate footwear was recommended however patient's does report that she has not been compliant with this. She also walks around barefooted a lot and does not routinely inspect her foot. She reports good control of her A1c however last check was about 6 months ago and was said to be around 6. She denies any discharge from her left foot, chills, fever, nausea, vomiting or otherwise feeling of unwell. Progress of Wound: Stable. No new complaints at this time. - Physical Exam Vital Signs Temp Pulse Resp BP 97.8 F 76 18 152/98 H 09/16/17 08:35 09/16/17 08:35 09/16/17 08:35 09/16/17 08:35 General: Alert, Oriented x3, Cooperative, No apparent distress HEENT: Atraumatic, Normocephalic Oral: Moist Mucosa Neck: Supple Lungs: Normal air movement Cardiovascular: Regular rate Extremities: No clubbing, No cyanosis Wound Measurements and Assessment WC - Nurse 1 - General Ulcer Measurement Start: 09/09/17 08:29 Freq: Status: Active Protocol: Activity Type Activity Date Activity User E-Sign Co-Sign Detail Recorded Client Recorded Date Recorded By Document 09/16/17 08:35 DL [id number] 09/16/17 08:44 DL 09/16/17 08:35 Wound Center Nurse 1 [Ulcer Assessment Protocol: WC.WD.LOC] #1 L plantar met head -Current Size (cm) - Length 0.5 -Current Size (cm) - Width 0.5 -Current Size (cm) - Depth 0.4 -Total Square Cm 0.25 -Photo Taken No -Maximum Distance #2 (cm) 0.2 -Circular Undermining Yes -Exudate Amt Small (1-33%) -Exudate Type Serosanguineous -Wound Margin Distinct, Outline Attached -Granulation Amt Small (1-33%) -Granulation Quality [place] -Necrosis Amt Small (1-33%) -Necrotic Tissue Type Adherent Slough -Structure Exposed N/A -Texture (Gisella-wound Skin Appearance) Callus -Moisture (Gisella-wound Skin Appearance Dry/Scaly ) -Color (Gisella-wound Skin Appearance) No Abnormality -Temperature (Gisella-wound Skin No Abnormality Appearance) (Pt Warm) -Tenderness on Palpation (Gisella-wound No Skin Appearance) -Ulcer Cleansing Rinsed/ Irrigated with Saline -Foul Odor after Cleansing No -Anesthetic Used 4% Lidocaine Solution - Nurse 2 - General Ulcer CM Notes Start: 09/09/17 08:29 Freq: Status: Active Protocol: Activity Type Activity Date Activity User E-Sign Co-Sign Detail Recorded Client Recorded Date Recorded By Document 09/16/17 09:20 DV [id number] 09/16/17 09:22 DV 09/16/17 09:20 Wound Center Nurse 2 [Procedure/Treatment] -Time 09:20 -Correct Patient Yes -Correct Side, Site, Position Yes -Correct Procedure Yes -Procedure Performed Yes -Type of Procedure Debridement -Clinical Debridement Subcutaneous -Post Debridement Size (cm) - Length 0.4 -Post Debridement Size (cm) - Width 0.9 -Post Debridement Size (cm) - Depth 0.2 -Total Square Cm 0.36 -Wound/Ulcer Outcome Not Healed -Ulcer Cleansing Rinsed/ Irrigated with Saline -Foul Odor after Cleansing No -Bioengineered Tissue No -Cetacaine [place] No -Bleeding Controlled with Pressure -Treatment Response Procedure Tolerated Well [See Physician Procedure note for Specifics] Pain Scale: 0-10 Numeric [Pain] -Is Patient Pain Free? Yes Musculoskeletal: No Muscle Wasting Debridement Note Post-Debridement Measurements/Treatment WC - Nurse 2 - General Ulcer CM Notes Start: 09/09/17 08:29 Freq: Status: Active Protocol: Activity Type Activity Date Activity User E-Sign Co-Sign Detail Recorded Client Recorded Date Recorded By Document 09/09/17 08:58 DV [id number] 09/09/17 09:00 DV Document 09/16/17 09:20 DV [id number] 09/16/17 09:22 DV 09/09/17 09/16/17 08:58 09:20 Wound Center Nurse 2 #1 L plantar met head -Time 08:59 09:20 -Correct Patient Yes Yes -Correct Side, Site, Position Yes Yes -Correct Procedure Yes Yes -Procedure Performed Yes Yes -Type of Procedure Debridement Debridement -Clinical Debridement Subcutaneous Subcutaneous -Post Debridement Size (cm) - Length 0.7 0.4 -Post Debridement Size (cm) - Width 0.5 0.9 -Post Debridement Size (cm) - Depth 0.2 0.2 -Total Square Cm 0.35 0.36 -Wound/Ulcer Outcome Not Healed Not Healed -Ulcer Cleansing Rinsed/ Rinsed/ Irrigated with Irrigated with Saline Saline -Foul Odor after Cleansing No No -Bioengineered Tissue No No -Cetacaine [place] No No -Bleeding Controlled with Pressure Pressure -Treatment Response Procedure Procedure Tolerated Well Tolerated Well Pain Scale: 0-10 Numeric Is Patient Pain Free? Yes Yes Wound debrided: Left Foot Wound Wound Grade/Stage: Grade 1 Type of Debridement: Excisional debridement Anesthesia Used: 4% Lidocaine Solution Depth: Down to and including healthy tissue, in the subcutaneous layer Percentage of wound debrided: 100 Instrument Used: 5mm curette Tissue Removed: Slough, Callus, Subcutaneous tissue Severity: Fat Layer Exposed Amount of bleeding with debridement: Mild Bleeding Controlled with: Pressure Patient tolerated procedure well Assessment/Plan Assessment: Grade 1 diabetic foot ulcer of left great toe metatarsal head. Diabetes mellitus type 2. Poorly controlled blood pressure. Plan: Circumference of prior wound has reduced however new fissure at the 9 o'clock position noted. She denies any history of trauma and attests to wearing her boots at all times. She also noted increased serosanguineous drainage from the wound site. There however is no increased tenderness and no discharge appreciated on examination. Continue Promogran dressing daily ensuring coverage of the fissure. Continue protein rich diet. Continue antibiotics. Wear foot wear at all times. Follow-up in 1 week. This note was generated with [employer] dictation software. It may contain incorrect words, spelling, and punctuation that were not noted in checking the note before signing.
--- NOTE | 2017-09-16 19:12 | PN.PCM_ITS ---
(1) Diabetic foot ulcer Status: Acute Current Visit: No Qualifiers: Code(s): E11.621 - Type 2 diabetes mellitus with foot ulcer; L97.509 - Non- pressure chronic ulcer of other part of unspecified foot with unspecified severity (2) Diabetes mellitus type 2 in obese Status: Chronic Current Visit: No Code(s): E11.69 - Type 2 diabetes mellitus with other specified complication; E66.9 - Obesity, unspecified (3) Diabetic neuropathy Status: Chronic Current Visit: No Code(s): E11.40 - Type 2 diabetes mellitus with diabetic neuropathy, unspecified Type of Wound Date of Service: 09/16/17 Chief Complaint: Chronic recurrent left foot ulcer. History of Wound: Ms. Sullivan is a 57yo with PMH of hypertension, diabetes mellitus type 2 [id number], chronic left foot ulcer and diabetic neuropathy. She was referred here by primary care physician due to chronic recurrent nonhealing left foot ulcer. Initial episode was said to be about 5 years ago about a year after her diagnosis of diabetes. Had been managed by her primary care physician on several ocassions for recurrence however current episode has persisted for over 6 months. She has a history of callus over her left great toe and had been seen by podiatry. Appropriate footwear was recommended however patient's does report that she has not been compliant with this. She also walks around barefooted a lot and does not routinely inspect her foot. She reports good control of her A1c however last check was about 6 months ago and was said to be around 6. She denies any discharge from her left foot, chills, fever, nausea, vomiting or otherwise feeling of unwell. Progress of Wound: Stable. No new complaints at this time. - Physical Exam Vital Signs Temp Pulse Resp BP 97.8 F 76 18 152/98 H 09/16/17 08:35 09/16/17 08:35 09/16/17 08:35 09/16/17 08:35 General: Alert, Oriented x3, Cooperative, No apparent distress HEENT: Atraumatic, Normocephalic Oral: Moist Mucosa Neck: Supple Lungs: Normal air movement Cardiovascular: Regular rate Extremities: No clubbing, No cyanosis Wound Measurements and Assessment WC - Nurse 1 - General Ulcer Measurement Start: 09/09/17 08:29 Freq: Status: Active Protocol: Activity Type Activity Date Activity User E-Sign Co-Sign Detail Recorded Client Recorded Date Recorded By Document 09/16/17 08:35 DL [id number] 09/16/17 08:44 DL 09/16/17 08:35 Wound Center Nurse 1 [Ulcer Assessment Protocol: WC.WD.LOC] #1 L plantar met head -Current Size (cm) - Length 0.5 -Current Size (cm) - Width 0.5 -Current Size (cm) - Depth 0.4 -Total Square Cm 0.25 -Photo Taken No -Maximum Distance #2 (cm) 0.2 -Circular Undermining Yes -Exudate Amt Small (1-33%) -Exudate Type Serosanguineous -Wound Margin Distinct, Outline Attached -Granulation Amt Small (1-33%) -Granulation Quality [place] -Necrosis Amt Small (1-33%) -Necrotic Tissue Type Adherent Slough -Structure Exposed N/A -Texture (Gisella-wound Skin Appearance) Callus -Moisture (Gisella-wound Skin Appearance Dry/Scaly ) -Color (Gisella-wound Skin Appearance) No Abnormality -Temperature (Gisella-wound Skin No Abnormality Appearance) (Pt Warm) -Tenderness on Palpation (Gisella-wound No Skin Appearance) -Ulcer Cleansing Rinsed/ Irrigated with Saline -Foul Odor after Cleansing No -Anesthetic Used 4% Lidocaine Solution - Nurse 2 - General Ulcer CM Notes Start: 09/09/17 08:29 Freq: Status: Active Protocol: Activity Type Activity Date Activity User E-Sign Co-Sign Detail Recorded Client Recorded Date Recorded By Document 09/16/17 09:20 DV [id number] 09/16/17 09:22 DV 09/16/17 09:20 Wound Center Nurse 2 [Procedure/Treatment] -Time 09:20 -Correct Patient Yes -Correct Side, Site, Position Yes -Correct Procedure Yes -Procedure Performed Yes -Type of Procedure Debridement -Clinical Debridement Subcutaneous -Post Debridement Size (cm) - Length 0.4 -Post Debridement Size (cm) - Width 0.9 -Post Debridement Size (cm) - Depth 0.2 -Total Square Cm 0.36 -Wound/Ulcer Outcome Not Healed -Ulcer Cleansing Rinsed/ Irrigated with Saline -Foul Odor after Cleansing No -Bioengineered Tissue No -Cetacaine [place] No -Bleeding Controlled with Pressure -Treatment Response Procedure Tolerated Well [See Physician Procedure note for Specifics] Pain Scale: 0-10 Numeric [Pain] -Is Patient Pain Free? Yes Musculoskeletal: No Muscle Wasting Debridement Note Post-Debridement Measurements/Treatment WC - Nurse 2 - General Ulcer CM Notes Start: 09/09/17 08:29 Freq: Status: Active Protocol: Activity Type Activity Date Activity User E-Sign Co-Sign Detail Recorded Client Recorded Date Recorded By Document 09/09/17 08:58 DV [id number] 09/09/17 09:00 DV Document 09/16/17 09:20 DV [id number] 09/16/17 09:22 DV 09/09/17 09/16/17 08:58 09:20 Wound Center Nurse 2 #1 L plantar met head -Time 08:59 09:20 -Correct Patient Yes Yes -Correct Side, Site, Position Yes Yes -Correct Procedure Yes Yes -Procedure Performed Yes Yes -Type of Procedure Debridement Debridement -Clinical Debridement Subcutaneous Subcutaneous -Post Debridement Size (cm) - Length 0.7 0.4 -Post Debridement Size (cm) - Width 0.5 0.9 -Post Debridement Size (cm) - Depth 0.2 0.2 -Total Square Cm 0.35 0.36 -Wound/Ulcer Outcome Not Healed Not Healed -Ulcer Cleansing Rinsed/ Rinsed/ Irrigated with Irrigated with Saline Saline -Foul Odor after Cleansing No No -Bioengineered Tissue No No -Cetacaine [place] No No -Bleeding Controlled with Pressure Pressure -Treatment Response Procedure Procedure Tolerated Well Tolerated Well Pain Scale: 0-10 Numeric Is Patient Pain Free? Yes Yes Wound debrided: Left Foot Wound Wound Grade/Stage: Grade 1 Type of Debridement: Excisional debridement Anesthesia Used: 4% Lidocaine Solution Depth: Down to and including healthy tissue, in the subcutaneous layer Percentage of wound debrided: 100 Instrument Used: 5mm curette Tissue Removed: Slough, Callus, Subcutaneous tissue Severity: Fat Layer Exposed Amount of bleeding with debridement: Mild Bleeding Controlled with: Pressure Patient tolerated procedure well Assessment/Plan Assessment: Grade 1 diabetic foot ulcer of left great toe metatarsal head. Diabetes mellitus type 2. Poorly controlled blood pressure. Plan: Circumference of prior wound has reduced however new fissure at the 9 o' clock position noted. She denies any history of trauma and attests to wearing her boots at all times. She also noted increased serosanguineous drainage from the wound site. There however is no increased tenderness and no discharge appreciated on examination. Continue Promogran dressing daily ensuring coverage of the fissure. Continue protein rich diet. Continue antibiotics. Wear foot wear at all times. Follow-up in 1 week. This note was generated with [employer] dictation software. It may contain incorrect words, spelling, and punctuation that were not noted in checking the note before signing.
[2017-09-23 08:55] VITALS: BP 156/90; PULSE 87; RESP 20; TEMP 37.5
--- NOTE | 2017-09-23 10:03 | PCM.WC.PN ---
(1) Diabetic foot ulcer Status: Acute Qualifiers: Code(s): E11.621 - Type 2 diabetes mellitus with foot ulcer; L97.509 - Non-pressure chronic ulcer of other part of unspecified foot with unspecified severity (2) Diabetes mellitus type 2 in obese Status: Chronic Code(s): E11.69 - Type 2 diabetes mellitus with other specified complication; E66.9 - Obesity, unspecified (3) Diabetic neuropathy Status: Chronic Code(s): E11.40 - Type 2 diabetes mellitus with diabetic neuropathy, unspecified Type of Wound Date of Service: 09/23/17 Chief Complaint: Chronic recurrent left foot ulcer. History of Wound: Ms. Sullivan is a 57yo with PMH of hypertension, diabetes mellitus type 2 [id number], chronic left foot ulcer and diabetic neuropathy. She was referred here by primary care physician due to chronic recurrent nonhealing left foot ulcer. Initial episode was said to be about 5 years ago about a year after her diagnosis of diabetes. Had been managed by her primary care physician on several ocassions for recurrence however current episode has persisted for over 6 months. She has a history of callus over her left great toe and had been seen by podiatry. Appropriate footwear was recommended however patient's does report that she has not been compliant with this. She also walks around barefooted a lot and does not routinely inspect her foot. She reports good control of her A1c however last check was about 6 months ago and was said to be around 6. She denies any discharge from her left foot, chills, fever, nausea, vomiting or otherwise feeling of unwell. Progress of Wound: Improving. No new complaints at this time. - Physical Exam Vital Signs Temp Pulse Resp BP 99.5 F H 87 20 H 156/90 H 09/23/17 08:55 09/23/17 08:55 09/23/17 08:55 09/23/17 08:55 General: Alert, Oriented x3, Cooperative, No apparent distress HEENT: Atraumatic, Normocephalic Oral: Moist Mucosa Neck: Supple Lungs: Normal air movement Cardiovascular: Regular rate Extremities: No clubbing, No cyanosis Wound Measurements and Assessment WC - Nurse 1 - General Ulcer Measurement Start: 09/09/17 08:29 Freq: Status: Active Protocol: Activity Type Activity Date Activity User E-Sign Co-Sign Detail Recorded Client Recorded Date Recorded By Document 09/23/17 08:55 RB [id number] 09/23/17 09:04 RB 09/23/17 08:55 Wound Center Nurse 1 [Ulcer Assessment Protocol: WC.WD.LOC] #1 L plantar met head -Combined with other wound No -Current Size (cm) - Length 0.1 -Current Size (cm) - Width 0.1 -Current Size (cm) - Depth 0.1 -Total Square Cm 0.01 -Photo Taken No -Epithelialization Small 1-33% -Tunneling No -Undermining/Tunneling No -Circular Undermining No -Classification - Thickness Full Thickness without Exposed Support Structure -Exudate Amt Small (1-33%) -Exudate Type Serosanguineous -Wound Margin Distinct, Outline Attached -Granulation Amt Small (1-33%) -Granulation Quality [place] -Slough/Fibrin Yes -Necrosis Amt Large (67-100%) -Necrotic Tissue Type Adherent Slough -Structure Exposed N/A -Texture (Gisella-wound Skin Appearance) Assessed -Moisture (Gisella-wound Skin Appearance Assessed ) -Color (Gisella-wound Skin Appearance) Assessed -Temperature (Gisella-wound Skin No Abnormality Appearance) (Pt Warm) -Tenderness on Palpation (Gisella-wound No Skin Appearance) -Ulcer Cleansing Rinsed/ Irrigated with Saline -Foul Odor after Cleansing No -Anesthetic Used 5% Lidocaine Gel - Nurse 2 - General Ulcer CM Notes Start: 09/09/17 08:29 Freq: Status: Active Protocol: Activity Type Activity Date Activity User E-Sign Co-Sign Detail Recorded Client Recorded Date Recorded By Document 09/23/17 09:33 DV [id number] 09/23/17 09:38 DV 09/23/17 09:33 Wound Center Nurse 2 [Procedure/Treatment] -Time 09:35 -Correct Patient Yes -Correct Side, Site, Position Yes -Correct Procedure Yes -Procedure Performed Yes -Type of Procedure Debridement -Clinical Debridement Subcutaneous -Post Debridement Size (cm) - Length 0.3 -Post Debridement Size (cm) - Width 0.7 -Post Debridement Size (cm) - Depth 0.3 -Total Square Cm 0.21 -Wound/Ulcer Outcome Not Healed -Ulcer Cleansing Rinsed/ Irrigated with Saline -Foul Odor after Cleansing No -Bioengineered Tissue No -Cetacaine [place] No -Bleeding Controlled with Pressure -Treatment Response Procedure Tolerated Well [See Physician Procedure note for Specifics] Pain Scale: 0-10 Numeric [Pain] -Is Patient Pain Free? Yes Musculoskeletal: No Muscle Wasting Neurological: Cranial nerves II-XII grossly intact Psych/Mental Status: Normal Affect Debridement Note Post-Debridement Measurements/Treatment WC - Nurse 2 - General Ulcer CM Notes Start: 09/09/17 08:29 Freq: Status: Active Protocol: Activity Type Activity Date Activity User E-Sign Co-Sign Detail Recorded Client Recorded Date Recorded By Document 09/09/17 08:58 DV [id number] 09/09/17 09:00 DV Document 09/16/17 09:20 DV [id number] 09/16/17 09:22 DV Document 09/23/17 09:33 DV [id number] 09/23/17 09:38 DV 09/09/17 09/16/17 09/23/17 08:58 09:20 09:33 Wound Center Nurse 2 #1 L plantar met head -Time 08:59 09:20 09:35 -Correct Patient Yes Yes Yes -Correct Side, Site, Position Yes Yes Yes -Correct Procedure Yes Yes Yes -Procedure Performed Yes Yes Yes -Type of Procedure Debridement Debridement Debridement -Clinical Debridement Subcutaneous Subcutaneous Subcutaneous -Post Debridement Size (cm) - Length 0.7 0.4 0.3 -Post Debridement Size (cm) - Width 0.5 0.9 0.7 -Post Debridement Size (cm) - Depth 0.2 0.2 0.3 -Total Square Cm 0.35 0.36 0.21 -Wound/Ulcer Outcome Not Healed Not Healed Not Healed -Ulcer Cleansing Rinsed/ Rinsed/ Rinsed/ Irrigated with Irrigated with Irrigated with Saline Saline Saline -Foul Odor after Cleansing No No No -Bioengineered Tissue No No No -Cetacaine [place] No No No -Bleeding Controlled with Pressure Pressure Pressure -Treatment Response Procedure Procedure Procedure Tolerated Well Tolerated Well Tolerated Well Pain Scale: 0-10 Numeric Is Patient Pain Free? Yes Yes Yes Wound debrided: Right Foot Wound Grade/Stage: Merino 1 Type of Debridement: Excisional debridement Anesthesia Used: 4% Lidocaine Solution Depth: Down to and including healthy tissue, in the subcutaneous layer Percentage of wound debrided: 100 Instrument Used: 3mm curette Tissue Removed: Biofilm, subcutaneous tissue. Amount of bleeding with debridement: Mild Bleeding Controlled with: Pressure Patient tolerated procedure well Assessment/Plan Assessment: Grade 1 diabetic foot ulcer of left great toe metatarsal head. Diabetes mellitus type 2. Poorly controlled blood pressure. Plan: Consistent progress of wound. New Fissure at last visit now closing out too. Better controlled blood sugar at home and she attests to wearing her boots daily. Continue Promogran dressing daily ensuring coverage of the fissure. Adaptic and guaze covering over area. Continue protein rich diet. Continue antibiotics. Wear foot wear at all times. Follow-up in 1 week. This note was generated with [employer] dictation software. It may contain incorrect words, spelling, and punctuation that were not noted in checking the note before signing.
--- NOTE | 2017-09-23 10:07 | PN.PCM_ITS ---
(1) Diabetic foot ulcer Status: Acute Qualifiers: Code(s): E11.621 - Type 2 diabetes mellitus with foot ulcer; L97.509 - Non- pressure chronic ulcer of other part of unspecified foot with unspecified severity (2) Diabetes mellitus type 2 in obese Status: Chronic Code(s): E11.69 - Type 2 diabetes mellitus with other specified complication; E66.9 - Obesity, unspecified (3) Diabetic neuropathy Status: Chronic Code(s): E11.40 - Type 2 diabetes mellitus with diabetic neuropathy, unspecified Type of Wound Date of Service: 09/23/17 Chief Complaint: Chronic recurrent left foot ulcer. History of Wound: Ms. Sullivan is a 57yo with PMH of hypertension, diabetes mellitus type 2 [id number], chronic left foot ulcer and diabetic neuropathy. She was referred here by primary care physician due to chronic recurrent nonhealing left foot ulcer. Initial episode was said to be about 5 years ago about a year after her diagnosis of diabetes. Had been managed by her primary care physician on several ocassions for recurrence however current episode has persisted for over 6 months. She has a history of callus over her left great toe and had been seen by podiatry. Appropriate footwear was recommended however patient's does report that she has not been compliant with this. She also walks around barefooted a lot and does not routinely inspect her foot. She reports good control of her A1c however last check was about 6 months ago and was said to be around 6. She denies any discharge from her left foot, chills, fever, nausea, vomiting or otherwise feeling of unwell. Progress of Wound: Improving. No new complaints at this time. - Physical Exam Vital Signs Temp Pulse Resp BP 99.5 F H 87 20 H 156/90 H 09/23/17 08:55 09/23/17 08:55 09/23/17 08:55 09/23/17 08:55 General: Alert, Oriented x3, Cooperative, No apparent distress HEENT: Atraumatic, Normocephalic Oral: Moist Mucosa Neck: Supple Lungs: Normal air movement Cardiovascular: Regular rate Extremities: No clubbing, No cyanosis Wound Measurements and Assessment WC - Nurse 1 - General Ulcer Measurement Start: 09/09/17 08:29 Freq: Status: Active Protocol: Activity Type Activity Date Activity User E-Sign Co-Sign Detail Recorded Client Recorded Date Recorded By Document 09/23/17 08:55 RB [id number] 09/23/17 09:04 RB 09/23/17 08:55 Wound Center Nurse 1 [Ulcer Assessment Protocol: WC.WD.LOC] #1 L plantar met head -Combined with other wound No -Current Size (cm) - Length 0.1 -Current Size (cm) - Width 0.1 -Current Size (cm) - Depth 0.1 -Total Square Cm 0.01 -Photo Taken No -Epithelialization Small 1-33% -Tunneling No -Undermining/Tunneling No -Circular Undermining No -Classification - Thickness Full Thickness without Exposed Support Structure -Exudate Amt Small (1-33%) -Exudate Type Serosanguineous -Wound Margin Distinct, Outline Attached -Granulation Amt Small (1-33%) -Granulation Quality [place] -Slough/Fibrin Yes -Necrosis Amt Large (67-100%) -Necrotic Tissue Type Adherent Slough -Structure Exposed N/A -Texture (Gisella-wound Skin Appearance) Assessed -Moisture (Gisella-wound Skin Appearance Assessed ) -Color (Gisella-wound Skin Appearance) Assessed -Temperature (Gisella-wound Skin No Abnormality Appearance) (Pt Warm) -Tenderness on Palpation (Gisella-wound No Skin Appearance) -Ulcer Cleansing Rinsed/ Irrigated with Saline -Foul Odor after Cleansing No -Anesthetic Used 5% Lidocaine Gel - Nurse 2 - General Ulcer CM Notes Start: 09/09/17 08:29 Freq: Status: Active Protocol: Activity Type Activity Date Activity User E-Sign Co-Sign Detail Recorded Client Recorded Date Recorded By Document 09/23/17 09:33 DV [id number] 09/23/17 09:38 DV 09/23/17 09:33 Wound Center Nurse 2 [Procedure/Treatment] -Time 09:35 -Correct Patient Yes -Correct Side, Site, Position Yes -Correct Procedure Yes -Procedure Performed Yes -Type of Procedure Debridement -Clinical Debridement Subcutaneous -Post Debridement Size (cm) - Length 0.3 -Post Debridement Size (cm) - Width 0.7 -Post Debridement Size (cm) - Depth 0.3 -Total Square Cm 0.21 -Wound/Ulcer Outcome Not Healed -Ulcer Cleansing Rinsed/ Irrigated with Saline -Foul Odor after Cleansing No -Bioengineered Tissue No -Cetacaine [place] No -Bleeding Controlled with Pressure -Treatment Response Procedure Tolerated Well [See Physician Procedure note for Specifics] Pain Scale: 0-10 Numeric [Pain] -Is Patient Pain Free? Yes Musculoskeletal: No Muscle Wasting Neurological: Cranial nerves II-XII grossly intact Psych/Mental Status: Normal Affect Debridement Note Post-Debridement Measurements/Treatment WC - Nurse 2 - General Ulcer CM Notes Start: 09/09/17 08:29 Freq: Status: Active Protocol: Activity Type Activity Date Activity User E-Sign Co-Sign Detail Recorded Client Recorded Date Recorded By Document 09/09/17 08:58 DV [id number] 09/09/17 09:00 DV Document 09/16/17 09:20 DV [id number] 09/16/17 09:22 DV Document 09/23/17 09:33 DV [id number] 09/23/17 09:38 DV 09/09/17 09/16/17 09/23/17 08:58 09:20 09:33 Wound Center Nurse 2 #1 L plantar met head -Time 08:59 09:20 09:35 -Correct Patient Yes Yes Yes -Correct Side, Site, Position Yes Yes Yes -Correct Procedure Yes Yes Yes -Procedure Performed Yes Yes Yes -Type of Procedure Debridement Debridement Debridement -Clinical Debridement Subcutaneous Subcutaneous Subcutaneous -Post Debridement Size (cm) - Length 0.7 0.4 0.3 -Post Debridement Size (cm) - Width 0.5 0.9 0.7 -Post Debridement Size (cm) - Depth 0.2 0.2 0.3 -Total Square Cm 0.35 0.36 0.21 -Wound/Ulcer Outcome Not Healed Not Healed Not Healed -Ulcer Cleansing Rinsed/ Rinsed/ Rinsed/ Irrigated with Irrigated with Irrigated with Saline Saline Saline -Foul Odor after Cleansing No No No -Bioengineered Tissue No No No -Cetacaine [place] No No No -Bleeding Controlled with Pressure Pressure Pressure -Treatment Response Procedure Procedure Procedure Tolerated Well Tolerated Well Tolerated Well Pain Scale: 0-10 Numeric Is Patient Pain Free? Yes Yes Yes Wound debrided: Right Foot Wound Grade/Stage: Merino 1 Type of Debridement: Excisional debridement Anesthesia Used: 4% Lidocaine Solution Depth: Down to and including healthy tissue, in the subcutaneous layer Percentage of wound debrided: 100 Instrument Used: 3mm curette Tissue Removed: Biofilm, subcutaneous tissue. Amount of bleeding with debridement: Mild Bleeding Controlled with: Pressure Patient tolerated procedure well Assessment/Plan Assessment: Grade 1 diabetic foot ulcer of left great toe metatarsal head. Diabetes mellitus type 2. Poorly controlled blood pressure. Plan: Consistent progress of wound. New Fissure at last visit now closing out too. Better controlled blood sugar at home and she attests to wearing her boots daily. Continue Promogran dressing daily ensuring coverage of the fissure. Adaptic and guaze covering over area. Continue protein rich diet. Continue antibiotics. Wear foot wear at all times. Follow-up in 1 week. This note was generated with [employer] dictation software. It may contain incorrect words, spelling, and punctuation that were not noted in checking the note before signing.
[2017-09-30 08:28] VITALS: BP 151/92; PULSE 70; RESP 18; TEMP 36.9
--- NOTE | 2017-09-30 09:42 | PCM.WC.PN ---
(1) Diabetic foot ulcer Status: Acute Current Visit: Yes Qualifiers: Code(s): E11.621 - Type 2 diabetes mellitus with foot ulcer; L97.509 - Non-pressure chronic ulcer of other part of unspecified foot with unspecified severity (2) Diabetes mellitus type 2 in obese Status: Chronic Current Visit: Yes Code(s): E11.69 - Type 2 diabetes mellitus with other specified complication; E66.9 - Obesity, unspecified (3) Diabetic neuropathy Status: Chronic Current Visit: Yes Code(s): E11.40 - Type 2 diabetes mellitus with diabetic neuropathy, unspecified Type of Wound Date of Service: 09/30/17 Chief Complaint: Chronic recurrent left foot ulcer. History of Wound: Ms. Sullivan is a 57yo with PMH of hypertension, diabetes mellitus type 2 [id number], chronic left foot ulcer and diabetic neuropathy. She was referred here by primary care physician due to chronic recurrent nonhealing left foot ulcer. Initial episode was said to be about 5 years ago about a year after her diagnosis of diabetes. Had been managed by her primary care physician on several ocassions for recurrence however current episode has persisted for over 6 months. She has a history of callus over her left great toe and had been seen by podiatry. Appropriate footwear was recommended however patient's does report that she has not been compliant with this. She also walks around barefooted a lot and does not routinely inspect her foot. She reports good control of her A1c however last check was about 6 months ago and was said to be around 6. She denies any discharge from her left foot, chills, fever, nausea, vomiting or otherwise feeling of unwell. Progress of Wound: Improving. No new complaints at this time. - Physical Exam Vital Signs Temp Pulse Resp BP 98.4 F 70 18 151/92 H 09/30/17 08:28 09/30/17 08:28 09/30/17 08:28 09/30/17 08:28 General: Alert, Oriented x3, Cooperative, No apparent distress HEENT: Atraumatic, Normocephalic Oral: Moist Mucosa Neck: Supple Cardiovascular: Regular rate Extremities: No cyanosis, No edema Wound Measurements and Assessment WC - Nurse 1 - General Ulcer Measurement Start: 09/09/17 08:29 Freq: Status: Active Protocol: Activity Type Activity Date Activity User E-Sign Co-Sign Detail Recorded Client Recorded Date Recorded By Document 09/30/17 08:28 TM [id number] 09/30/17 08:32 09/30/17 08:28 Wound Center Nurse 1 [Ulcer Assessment Protocol: WC.WD.LOC] #1 L plantar met head -Combined with other wound No -Current Size (cm) - Length 0.2 -Current Size (cm) - Width 0.2 -Current Size (cm) - Depth 0.2 -Total Square Cm 0.04 -Date of Last Picture (Recall this 09/30/17 field) -Photo Taken Yes -Epithelialization Small 1-33% -Tunneling No -Undermining/Tunneling No -Circular Undermining Yes -Classification - Thickness Full Thickness without Exposed Support Structure -Exudate Amt None Present (0 %) -Wound Margin Distinct, Outline Attached -Granulation Amt Small (1-33%) -Granulation Quality [place] -Slough/Fibrin Yes -Necrosis Amt None Present (0 %) -Structure Exposed None/Limited to Skin Breakdown -Texture (Gisella-wound Skin Appearance) Scarring -Moisture (Gisella-wound Skin Appearance Dry/Scaly ) -Color (Gisella-wound Skin Appearance) Erythema -Temperature (Gisella-wound Skin No Abnormality Appearance) (Pt Warm) -Tenderness on Palpation (Gisella-wound No Skin Appearance) -Ulcer Cleansing Rinsed/ Irrigated with Saline -Foul Odor after Cleansing No -Anesthetic Used 4% Lidocaine Solution [Edema Assessment] -Lower Limb Edema Present No - Nurse 2 - General Ulcer CM Notes Start: 09/09/17 08:29 Freq: Status: Active Protocol: Activity Type Activity Date Activity User E-Sign Co-Sign Detail Recorded Client Recorded Date Recorded By Document 09/30/17 09:09 DV [id number] 09/30/17 09:11 DV 09/30/17 09:09 Wound Center Nurse 2 [Procedure/Treatment] #1 L plantar met head -Time 09:10 -Correct Patient Yes -Correct Side, Site, Position Yes -Correct Procedure Yes -Procedure Performed Yes -Type of Procedure Debridement -Clinical Debridement Subcutaneous -Post Debridement Size (cm) - Length 0.2 -Post Debridement Size (cm) - Width 0.3 -Post Debridement Size (cm) - Depth 0.1 -Total Square Cm 0.06 -Wound/Ulcer Outcome Not Healed -Ulcer Cleansing Rinsed/ Irrigated with Saline -Foul Odor after Cleansing No -Bioengineered Tissue No -Cetacaine [place] No -Bleeding Controlled with Pressure -Treatment Response Procedure Tolerated Well [See Physician Procedure note for Specifics] Pain Scale: 0-10 Numeric [Pain] -Is Patient Pain Free? Yes Neurological: Cranial nerves II-XII grossly intact Psych/Mental Status: Normal Affect Debridement Note Post-Debridement Measurements/Treatment WC - Nurse 2 - General Ulcer CM Notes Start: 09/09/17 08:29 Freq: Status: Active Protocol: Activity Type Activity Date Activity User E-Sign Co-Sign Detail Recorded Client Recorded Date Recorded By Document 09/09/17 08:58 DV [id number] 09/09/17 09:00 DV Document 09/16/17 09:20 DV [id number] 09/16/17 09:22 DV Document 09/23/17 09:33 DV [id number] 09/23/17 09:38 DV Document 09/30/17 09:09 DV [id number] 09/30/17 09:11 DV 09/09/17 09/16/17 09/23/17 08:58 09:20 09:33 Wound Center Nurse 2 #1 L plantar met head -Time 08:59 09:20 09:35 -Correct Patient Yes Yes Yes -Correct Side, Site, Position Yes Yes Yes -Correct Procedure Yes Yes Yes -Procedure Performed Yes Yes Yes -Type of Procedure Debridement Debridement Debridement -Clinical Debridement Subcutaneous Subcutaneous Subcutaneous -Post Debridement Size (cm) - Length 0.7 0.4 0.3 -Post Debridement Size (cm) - Width 0.5 0.9 0.7 -Post Debridement Size (cm) - Depth 0.2 0.2 0.3 -Total Square Cm 0.35 0.36 0.21 -Wound/Ulcer Outcome Not Healed Not Healed Not Healed -Ulcer Cleansing Rinsed/ Rinsed/ Rinsed/ Irrigated with Irrigated with Irrigated with Saline Saline Saline -Foul Odor after Cleansing No No No -Bioengineered Tissue No No No -Cetacaine [place] No No No -Bleeding Controlled with Pressure Pressure Pressure -Treatment Response Procedure Procedure Procedure Tolerated Well Tolerated Well Tolerated Well Pain Scale: 0-10 Numeric Is Patient Pain Free? Yes Yes Yes 09/30/17 09:09 Wound Center Nurse 2 #1 L plantar met head -Time 09:10 -Correct Patient Yes -Correct Side, Site, Position Yes -Correct Procedure Yes -Procedure Performed Yes -Type of Procedure Debridement -Clinical Debridement Subcutaneous -Post Debridement Size (cm) - Length 0.2 -Post Debridement Size (cm) - Width 0.3 -Post Debridement Size (cm) - Depth 0.1 -Total Square Cm 0.06 -Wound/Ulcer Outcome Not Healed -Ulcer Cleansing Rinsed/ Irrigated with Saline -Foul Odor after Cleansing No -Bioengineered Tissue No -Cetacaine [place] No -Bleeding Controlled with Pressure -Treatment Response Procedure Tolerated Well Pain Scale: 0-10 Numeric Is Patient Pain Free? Yes Wound debrided: Left Plantar Foot wound. Wound Grade/Stage: Merino 1 Type of Debridement: Excisional debridement Anesthesia Used: 4% Lidocaine Solution Depth: Down to and including healthy tissue, in the subcutaneous layer Percentage of wound debrided: 100 Instrument Used: 3mm curette Tissue Removed: Slough, Devitalized Tissue. Amount of bleeding with debridement: Mild Bleeding Controlled with: Pressure Patient tolerated procedure well Assessment/Plan Active Problems Diabetic foot ulcer (Acute) Diabetes mellitus type 2 in obese (Chronic) Diabetic neuropathy (Chronic) Assessment: Grade 1 diabetic foot ulcer of left great toe metatarsal head. Diabetes mellitus type 2. Poorly controlled blood pressure. Plan: Continues to show good progress. Completed antibiotics. Better controlled blood sugar at home and she attests to wearing her boots daily. Continue Promogran dressing daily. Adaptic and guaze covering over area. Continue protein rich diet. Wear foot wear at all times. Follow-up in 1 week. This note was generated with [employer] dictation software. It may contain incorrect words, spelling, and punctuation that were not noted in checking the note before signing.
--- NOTE | 2017-09-30 09:45 | PN.PCM_ITS ---
(1) Diabetic foot ulcer Status: Acute Current Visit: Yes Qualifiers: Code(s): E11.621 - Type 2 diabetes mellitus with foot ulcer; L97.509 - Non- pressure chronic ulcer of other part of unspecified foot with unspecified severity (2) Diabetes mellitus type 2 in obese Status: Chronic Current Visit: Yes Code(s): E11.69 - Type 2 diabetes mellitus with other specified complication; E66.9 - Obesity, unspecified (3) Diabetic neuropathy Status: Chronic Current Visit: Yes Code(s): E11.40 - Type 2 diabetes mellitus with diabetic neuropathy, unspecified Type of Wound Date of Service: 09/30/17 Chief Complaint: Chronic recurrent left foot ulcer. History of Wound: Ms. Sullivan is a 57yo with PMH of hypertension, diabetes mellitus type 2 [id number], chronic left foot ulcer and diabetic neuropathy. She was referred here by primary care physician due to chronic recurrent nonhealing left foot ulcer. Initial episode was said to be about 5 years ago about a year after her diagnosis of diabetes. Had been managed by her primary care physician on several ocassions for recurrence however current episode has persisted for over 6 months. She has a history of callus over her left great toe and had been seen by podiatry. Appropriate footwear was recommended however patient's does report that she has not been compliant with this. She also walks around barefooted a lot and does not routinely inspect her foot. She reports good control of her A1c however last check was about 6 months ago and was said to be around 6. She denies any discharge from her left foot, chills, fever, nausea, vomiting or otherwise feeling of unwell. Progress of Wound: Improving. No new complaints at this time. - Physical Exam Vital Signs Temp Pulse Resp BP 98.4 F 70 18 151/92 H 09/30/17 08:28 09/30/17 08:28 09/30/17 08:28 09/30/17 08:28 General: Alert, Oriented x3, Cooperative, No apparent distress HEENT: Atraumatic, Normocephalic Oral: Moist Mucosa Neck: Supple Cardiovascular: Regular rate Extremities: No cyanosis, No edema Wound Measurements and Assessment WC - Nurse 1 - General Ulcer Measurement Start: 09/09/17 08:29 Freq: Status: Active Protocol: Activity Type Activity Date Activity User E-Sign Co-Sign Detail Recorded Client Recorded Date Recorded By Document 09/30/17 08:28 TM [id number] 09/30/17 08:32 09/30/17 08:28 Wound Center Nurse 1 [Ulcer Assessment Protocol: WC.WD.LOC] #1 L plantar met head -Combined with other wound No -Current Size (cm) - Length 0.2 -Current Size (cm) - Width 0.2 -Current Size (cm) - Depth 0.2 -Total Square Cm 0.04 -Date of Last Picture (Recall this 09/30/17 field) -Photo Taken Yes -Epithelialization Small 1-33% -Tunneling No -Undermining/Tunneling No -Circular Undermining Yes -Classification - Thickness Full Thickness without Exposed Support Structure -Exudate Amt None Present (0 %) -Wound Margin Distinct, Outline Attached -Granulation Amt Small (1-33%) -Granulation Quality [place] -Slough/Fibrin Yes -Necrosis Amt None Present (0 %) -Structure Exposed None/Limited to Skin Breakdown -Texture (Gisella-wound Skin Appearance) Scarring -Moisture (Gisella-wound Skin Appearance Dry/Scaly ) -Color (Gisella-wound Skin Appearance) Erythema -Temperature (Gisella-wound Skin No Abnormality Appearance) (Pt Warm) -Tenderness on Palpation (Gisella-wound No Skin Appearance) -Ulcer Cleansing Rinsed/ Irrigated with Saline -Foul Odor after Cleansing No -Anesthetic Used 4% Lidocaine Solution [Edema Assessment] -Lower Limb Edema Present No - Nurse 2 - General Ulcer CM Notes Start: 09/09/17 08:29 Freq: Status: Active Protocol: Activity Type Activity Date Activity User E-Sign Co-Sign Detail Recorded Client Recorded Date Recorded By Document 09/30/17 09:09 DV [id number] 09/30/17 09:11 DV 09/30/17 09:09 Wound Center Nurse 2 [Procedure/Treatment] #1 L plantar met head -Time 09:10 -Correct Patient Yes -Correct Side, Site, Position Yes -Correct Procedure Yes -Procedure Performed Yes -Type of Procedure Debridement -Clinical Debridement Subcutaneous -Post Debridement Size (cm) - Length 0.2 -Post Debridement Size (cm) - Width 0.3 -Post Debridement Size (cm) - Depth 0.1 -Total Square Cm 0.06 -Wound/Ulcer Outcome Not Healed -Ulcer Cleansing Rinsed/ Irrigated with Saline -Foul Odor after Cleansing No -Bioengineered Tissue No -Cetacaine [place] No -Bleeding Controlled with Pressure -Treatment Response Procedure Tolerated Well [See Physician Procedure note for Specifics] Pain Scale: 0-10 Numeric [Pain] -Is Patient Pain Free? Yes Neurological: Cranial nerves II-XII grossly intact Psych/Mental Status: Normal Affect Debridement Note Post-Debridement Measurements/Treatment WC - Nurse 2 - General Ulcer CM Notes Start: 09/09/17 08:29 Freq: Status: Active Protocol: Activity Type Activity Date Activity User E-Sign Co-Sign Detail Recorded Client Recorded Date Recorded By Document 09/09/17 08:58 DV [id number] 09/09/17 09:00 DV Document 09/16/17 09:20 DV [id number] 09/16/17 09:22 DV Document 09/23/17 09:33 DV [id number] 09/23/17 09:38 DV Document 09/30/17 09:09 DV [id number] 09/30/17 09:11 DV 09/09/17 09/16/17 09/23/17 08:58 09:20 09:33 Wound Center Nurse 2 #1 L plantar met head -Time 08:59 09:20 09:35 -Correct Patient Yes Yes Yes -Correct Side, Site, Position Yes Yes Yes -Correct Procedure Yes Yes Yes -Procedure Performed Yes Yes Yes -Type of Procedure Debridement Debridement Debridement -Clinical Debridement Subcutaneous Subcutaneous Subcutaneous -Post Debridement Size (cm) - Length 0.7 0.4 0.3 -Post Debridement Size (cm) - Width 0.5 0.9 0.7 -Post Debridement Size (cm) - Depth 0.2 0.2 0.3 -Total Square Cm 0.35 0.36 0.21 -Wound/Ulcer Outcome Not Healed Not Healed Not Healed -Ulcer Cleansing Rinsed/ Rinsed/ Rinsed/ Irrigated with Irrigated with Irrigated with Saline Saline Saline -Foul Odor after Cleansing No No No -Bioengineered Tissue No No No -Cetacaine [place] No No No -Bleeding Controlled with Pressure Pressure Pressure -Treatment Response Procedure Procedure Procedure Tolerated Well Tolerated Well Tolerated Well Pain Scale: 0-10 Numeric Is Patient Pain Free? Yes Yes Yes 09/30/17 09:09 Wound Center Nurse 2 #1 L plantar met head -Time 09:10 -Correct Patient Yes -Correct Side, Site, Position Yes -Correct Procedure Yes -Procedure Performed Yes -Type of Procedure Debridement -Clinical Debridement Subcutaneous -Post Debridement Size (cm) - Length 0.2 -Post Debridement Size (cm) - Width 0.3 -Post Debridement Size (cm) - Depth 0.1 -Total Square Cm 0.06 -Wound/Ulcer Outcome Not Healed -Ulcer Cleansing Rinsed/ Irrigated with Saline -Foul Odor after Cleansing No -Bioengineered Tissue No -Cetacaine [place] No -Bleeding Controlled with Pressure -Treatment Response Procedure Tolerated Well Pain Scale: 0-10 Numeric Is Patient Pain Free? Yes Wound debrided: Left Plantar Foot wound. Wound Grade/Stage: Merino 1 Type of Debridement: Excisional debridement Anesthesia Used: 4% Lidocaine Solution Depth: Down to and including healthy tissue, in the subcutaneous layer Percentage of wound debrided: 100 Instrument Used: 3mm curette Tissue Removed: Slough, Devitalized Tissue. Amount of bleeding with debridement: Mild Bleeding Controlled with: Pressure Patient tolerated procedure well Assessment/Plan Active Problems Diabetic foot ulcer (Acute) Diabetes mellitus type 2 in obese (Chronic) Diabetic neuropathy (Chronic) Assessment: Grade 1 diabetic foot ulcer of left great toe metatarsal head. Diabetes mellitus type 2. Poorly controlled blood pressure. Plan: Continues to show good progress. Completed antibiotics. Better controlled blood sugar at home and she attests to wearing her boots daily. Continue Promogran dressing daily. Adaptic and guaze covering over area. Continue protein rich diet. Wear foot wear at all times. Follow-up in 1 week. This note was generated with [employer] dictation software. It may contain incorrect words, spelling, and punctuation that were not noted in checking the note before signing.
== END 2017-10-06 23:59 ==
LOC: WC 08:30
PROVIDERS: Family Provider Family Medicine; PCP Family Medicine; Visit Provider Internal Medicine
DX: E11.621 Type 2 diabetes mellitus with foot ulcer (principal); L97.522 Non-pressure chronic ulcer of other part of left foot with fat layer exposed; E11.40 Type 2 diabetes mellitus with diabetic neuropathy, unspecified; E66.9 Obesity, unspecified; Z71.3 Dietary counseling and surveillance; I10 Essential (primary) hypertension; L84 Corns and callosities; Z91.19 Patient's noncompliance with other medical treatment and regimen
CPT/HCPCS: 11042

== ENCOUNTER 2017-10-28 09:00 | Outpatient (RCR) | payer OTHER, SELFPAY ==
[2017-09-30 08:28] VITALS: BP 151/92
[2017-10-07 00:56] VITALS: PULSE 70; RESP 18; TEMP 36.9
[2017-10-07 08:34] VITALS: BP 158/93; PULSE 75; RESP 16; TEMP 37
--- NOTE | 2017-10-07 17:34 | PCM.WC.PN ---
(1) Diabetic foot ulcer Status: Acute Current Visit: No Qualifiers: Code(s): E11.621 - Type 2 diabetes mellitus with foot ulcer; L97.509 - Non-pressure chronic ulcer of other part of unspecified foot with unspecified severity (2) Diabetes mellitus type 2 in obese Status: Chronic Current Visit: No Code(s): E11.69 - Type 2 diabetes mellitus with other specified complication; E66.9 - Obesity, unspecified (3) Diabetic neuropathy Status: Chronic Current Visit: No Code(s): E11.40 - Type 2 diabetes mellitus with diabetic neuropathy, unspecified Type of Wound Date of Service: 10/07/17 Chief Complaint: Chronic recurrent left foot ulcer. History of Wound: Ms. Sullivan is a 57yo with PMH of hypertension, diabetes mellitus type 2 [id number], chronic left foot ulcer and diabetic neuropathy. She was referred here by primary care physician due to chronic recurrent nonhealing left foot ulcer. Initial episode was said to be about 5 years ago about a year after her diagnosis of diabetes. Had been managed by her primary care physician on several ocassions for recurrence however current episode has persisted for over 6 months. She has a history of callus over her left great toe and had been seen by podiatry. Appropriate footwear was recommended however patient's does report that she has not been compliant with this. She also walks around barefooted a lot and does not routinely inspect her foot. She reports good control of her A1c however last check was about 6 months ago and was said to be around 6. She denies any discharge from her left foot, chills, fever, nausea, vomiting or otherwise feeling of unwell. Progress of Wound: Stable. No new complaints at this time. - Physical Exam Vital Signs Temp Pulse Resp BP 98.6 F 75 16 158/93 H 10/07/17 08:34 10/07/17 08:34 10/07/17 08:34 10/07/17 08:34 General: Alert, Oriented x3, Cooperative, No apparent distress HEENT: Atraumatic, Normocephalic Oral: Moist Mucosa Neck: Supple Lungs: Normal air movement Cardiovascular: Regular Rhythm Extremities: No clubbing, No cyanosis Skin: Ulcer/ Wound Wound Measurements and Assessment WC - Nurse 1 - General Ulcer Measurement Start: 10/07/17 08:34 Freq: Status: Active Protocol: Activity Type Activity Date Activity User E-Sign Co-Sign Detail Recorded Client Recorded Date Recorded By Document 10/07/17 08:34 DL [id number] 10/07/17 08:41 DL 10/07/17 08:34 Wound Center Nurse 1 [Ulcer Assessment Protocol: WC.WD.LOC] #1 L plantar met head -Current Size (cm) - Length 0.2 -Current Size (cm) - Width 0.2 -Current Size (cm) - Depth 0.3 -Total Square Cm 0.04 -Photo Taken No -Maximum Distance #2 (cm) 0.2 -Circular Undermining Yes -Exudate Amt None Present (0 %) -Wound Margin Flat & Intact -Granulation Amt Small (1-33%) -Granulation Quality [place] -Necrosis Amt None Present (0 %) -Structure Exposed N/A -Texture (Gisella-wound Skin Appearance) Callus -Moisture (Gisella-wound Skin Appearance No Abnormality ) -Color (Gisella-wound Skin Appearance) No Abnormality -Temperature (Gisella-wound Skin No Abnormality Appearance) (Pt Warm) -Tenderness on Palpation (Gisella-wound No Skin Appearance) -Ulcer Cleansing Rinsed/ Irrigated with Saline -Foul Odor after Cleansing No -Anesthetic Used 4% Lidocaine Solution - Nurse 2 - General Ulcer CM Notes Start: 10/07/17 08:34 Freq: Status: Active Protocol: Activity Type Activity Date Activity User E-Sign Co-Sign Detail Recorded Client Recorded Date Recorded By Document 10/07/17 09:30 DV [id number] 10/07/17 09:37 DV 10/07/17 09:30 Wound Center Nurse 2 [Procedure/Treatment] -Time 09:31 -Correct Patient Yes -Correct Side, Site, Position Yes -Correct Procedure Yes -Procedure Performed Yes -Type of Procedure Debridement -Clinical Debridement Subcutaneous -Post Debridement Size (cm) - Length 0.3 -Post Debridement Size (cm) - Width 0.2 -Post Debridement Size (cm) - Depth 0.1 -Total Square Cm 0.06 -Wound/Ulcer Outcome Not Healed -Ulcer Cleansing Rinsed/ Irrigated with Saline -Foul Odor after Cleansing No -Bioengineered Tissue No -Cetacaine [place] No -Bleeding Controlled with Pressure -Treatment Response Procedure Tolerated Well [See Physician Procedure note for Specifics] Pain Scale: 0-10 Numeric [Pain] -Is Patient Pain Free? Yes Musculoskeletal: No Muscle Wasting Neurological: Cranial nerves II-XII grossly intact Psych/Mental Status: Normal Affect Debridement Note Post-Debridement Measurements/Treatment WC - Nurse 2 - General Ulcer CM Notes Start: 10/07/17 08:34 Freq: Status: Active Protocol: Activity Type Activity Date Activity User E-Sign Co-Sign Detail Recorded Client Recorded Date Recorded By Document 10/07/17 09:30 DV [id number] 10/07/17 09:37 DV 10/07/17 09:30 Wound Center Nurse 2 #1 L plantar met head -Time 09:31 -Correct Patient Yes -Correct Side, Site, Position Yes -Correct Procedure Yes -Procedure Performed Yes -Type of Procedure Debridement -Clinical Debridement Subcutaneous -Post Debridement Size (cm) - Length 0.3 -Post Debridement Size (cm) - Width 0.2 -Post Debridement Size (cm) - Depth 0.1 -Total Square Cm 0.06 -Wound/Ulcer Outcome Not Healed -Ulcer Cleansing Rinsed/ Irrigated with Saline -Foul Odor after Cleansing No -Bioengineered Tissue No -Cetacaine [place] No -Bleeding Controlled with Pressure -Treatment Response Procedure Tolerated Well Pain Scale: 0-10 Numeric Is Patient Pain Free? Yes Wound debrided: Right foot Wound Grade/Stage: Merino I Type of Debridement: Excisional debridement Anesthesia Used: 4% Lidocaine Solution Depth: Down to and including healthy tissue, in the subcutaneous layer Percentage of wound debrided: 100 Instrument Used: 3mm curette Tissue Removed: Slough and devitalized tissue Severity: Fat Layer Exposed Amount of bleeding with debridement: Mild Bleeding Controlled with: Pressure Patient tolerated procedure well Assessment/Plan Assessment: Grade 1 diabetic foot ulcer of left great toe metatarsal head. Diabetes mellitus type 2. Poorly controlled blood pressure. Plan: No significant progress in the last week. Patient attests to daily dressing however, has been more difficult to apply Promogran to the wound as the size has reduced. She also states that she has had to be on her feet a lot due to increased activity in the past week she however, wears her offloading boots. We will switch to hydrogel. Apply daily. Adaptic and guaze covering over area. Continue protein rich diet. Wear foot wear at all times. Follow-up in 1 week. This note was generated with [employer] software. It may contain incorrect words, spelling, and punctuation that were not noted in checking the note before signing.
--- NOTE | 2017-10-07 17:37 | PN.PCM_ITS ---
(1) Diabetic foot ulcer Status: Acute Current Visit: No Qualifiers: Code(s): E11.621 - Type 2 diabetes mellitus with foot ulcer; L97.509 - Non- pressure chronic ulcer of other part of unspecified foot with unspecified severity (2) Diabetes mellitus type 2 in obese Status: Chronic Current Visit: No Code(s): E11.69 - Type 2 diabetes mellitus with other specified complication; E66.9 - Obesity, unspecified (3) Diabetic neuropathy Status: Chronic Current Visit: No Code(s): E11.40 - Type 2 diabetes mellitus with diabetic neuropathy, unspecified Type of Wound Date of Service: 10/07/17 Chief Complaint: Chronic recurrent left foot ulcer. History of Wound: Ms. Sullivan is a 57yo with PMH of hypertension, diabetes mellitus type 2 [id number], chronic left foot ulcer and diabetic neuropathy. She was referred here by primary care physician due to chronic recurrent nonhealing left foot ulcer. Initial episode was said to be about 5 years ago about a year after her diagnosis of diabetes. Had been managed by her primary care physician on several ocassions for recurrence however current episode has persisted for over 6 months. She has a history of callus over her left great toe and had been seen by podiatry. Appropriate footwear was recommended however patient's does report that she has not been compliant with this. She also walks around barefooted a lot and does not routinely inspect her foot. She reports good control of her A1c however last check was about 6 months ago and was said to be around 6. She denies any discharge from her left foot, chills, fever, nausea, vomiting or otherwise feeling of unwell. Progress of Wound: Stable. No new complaints at this time. - Physical Exam Vital Signs Temp Pulse Resp BP 98.6 F 75 16 158/93 H 10/07/17 08:34 10/07/17 08:34 10/07/17 08:34 10/07/17 08:34 General: Alert, Oriented x3, Cooperative, No apparent distress HEENT: Atraumatic, Normocephalic Oral: Moist Mucosa Neck: Supple Lungs: Normal air movement Cardiovascular: Regular Rhythm Extremities: No clubbing, No cyanosis Skin: Ulcer/ Wound Wound Measurements and Assessment WC - Nurse 1 - General Ulcer Measurement Start: 10/07/17 08:34 Freq: Status: Active Protocol: Activity Type Activity Date Activity User E-Sign Co-Sign Detail Recorded Client Recorded Date Recorded By Document 10/07/17 08:34 DL [id number] 10/07/17 08:41 DL 10/07/17 08:34 Wound Center Nurse 1 [Ulcer Assessment Protocol: WC.WD.LOC] #1 L plantar met head -Current Size (cm) - Length 0.2 -Current Size (cm) - Width 0.2 -Current Size (cm) - Depth 0.3 -Total Square Cm 0.04 -Photo Taken No -Maximum Distance #2 (cm) 0.2 -Circular Undermining Yes -Exudate Amt None Present (0 %) -Wound Margin Flat & Intact -Granulation Amt Small (1-33%) -Granulation Quality [place] -Necrosis Amt None Present (0 %) -Structure Exposed N/A -Texture (Gisella-wound Skin Appearance) Callus -Moisture (Gisella-wound Skin Appearance No Abnormality ) -Color (Gisella-wound Skin Appearance) No Abnormality -Temperature (Gisella-wound Skin No Abnormality Appearance) (Pt Warm) -Tenderness on Palpation (Gisella-wound No Skin Appearance) -Ulcer Cleansing Rinsed/ Irrigated with Saline -Foul Odor after Cleansing No -Anesthetic Used 4% Lidocaine Solution - Nurse 2 - General Ulcer CM Notes Start: 10/07/17 08:34 Freq: Status: Active Protocol: Activity Type Activity Date Activity User E-Sign Co-Sign Detail Recorded Client Recorded Date Recorded By Document 10/07/17 09:30 DV [id number] 10/07/17 09:37 DV 10/07/17 09:30 Wound Center Nurse 2 [Procedure/Treatment] -Time 09:31 -Correct Patient Yes -Correct Side, Site, Position Yes -Correct Procedure Yes -Procedure Performed Yes -Type of Procedure Debridement -Clinical Debridement Subcutaneous -Post Debridement Size (cm) - Length 0.3 -Post Debridement Size (cm) - Width 0.2 -Post Debridement Size (cm) - Depth 0.1 -Total Square Cm 0.06 -Wound/Ulcer Outcome Not Healed -Ulcer Cleansing Rinsed/ Irrigated with Saline -Foul Odor after Cleansing No -Bioengineered Tissue No -Cetacaine [place] No -Bleeding Controlled with Pressure -Treatment Response Procedure Tolerated Well [See Physician Procedure note for Specifics] Pain Scale: 0-10 Numeric [Pain] -Is Patient Pain Free? Yes Musculoskeletal: No Muscle Wasting Neurological: Cranial nerves II-XII grossly intact Psych/Mental Status: Normal Affect Debridement Note Post-Debridement Measurements/Treatment WC - Nurse 2 - General Ulcer CM Notes Start: 10/07/17 08:34 Freq: Status: Active Protocol: Activity Type Activity Date Activity User E-Sign Co-Sign Detail Recorded Client Recorded Date Recorded By Document 10/07/17 09:30 DV [id number] 10/07/17 09:37 DV 10/07/17 09:30 Wound Center Nurse 2 #1 L plantar met head -Time 09:31 -Correct Patient Yes -Correct Side, Site, Position Yes -Correct Procedure Yes -Procedure Performed Yes -Type of Procedure Debridement -Clinical Debridement Subcutaneous -Post Debridement Size (cm) - Length 0.3 -Post Debridement Size (cm) - Width 0.2 -Post Debridement Size (cm) - Depth 0.1 -Total Square Cm 0.06 -Wound/Ulcer Outcome Not Healed -Ulcer Cleansing Rinsed/ Irrigated with Saline -Foul Odor after Cleansing No -Bioengineered Tissue No -Cetacaine [place] No -Bleeding Controlled with Pressure -Treatment Response Procedure Tolerated Well Pain Scale: 0-10 Numeric Is Patient Pain Free? Yes Wound debrided: Right foot Wound Grade/Stage: Merino I Type of Debridement: Excisional debridement Anesthesia Used: 4% Lidocaine Solution Depth: Down to and including healthy tissue, in the subcutaneous layer Percentage of wound debrided: 100 Instrument Used: 3mm curette Tissue Removed: Slough and devitalized tissue Severity: Fat Layer Exposed Amount of bleeding with debridement: Mild Bleeding Controlled with: Pressure Patient tolerated procedure well Assessment/Plan Assessment: Grade 1 diabetic foot ulcer of left great toe metatarsal head. Diabetes mellitus type 2. Poorly controlled blood pressure. Plan: No significant progress in the last week. Patient attests to daily dressing however, has been more difficult to apply Promogran to the wound as the size has reduced. She also states that she has had to be on her feet a lot due to increased activity in the past week she however, wears her offloading boots. We will switch to hydrogel. Apply daily. Adaptic and guaze covering over area. Continue protein rich diet. Wear foot wear at all times. Follow- up in 1 week. This note was generated with [employer] software. It may contain incorrect words, spelling, and punctuation that were not noted in checking the note before signing.
[2017-10-14 12:02] VITALS: BP 193/92; PULSE 72; RESP 16; TEMP 37.1
--- NOTE | 2017-10-14 17:59 | PCM.WC.PN ---
(1) Diabetic foot ulcer Status: Acute Qualifiers: Code(s): E11.621 - Type 2 diabetes mellitus with foot ulcer; L97.509 - Non-pressure chronic ulcer of other part of unspecified foot with unspecified severity (2) Diabetes mellitus type 2 in obese Status: Chronic Code(s): E11.69 - Type 2 diabetes mellitus with other specified complication; E66.9 - Obesity, unspecified (3) Diabetic neuropathy Status: Chronic Code(s): E11.40 - Type 2 diabetes mellitus with diabetic neuropathy, unspecified Type of Wound Date of Service: 10/14/17 Chief Complaint: Chronic recurrent left foot ulcer. History of Wound: Ms. Sullivan is a 57yo with PMH of hypertension, diabetes mellitus type 2 [id number], chronic left foot ulcer and diabetic neuropathy. She was referred here by primary care physician due to chronic recurrent nonhealing left foot ulcer. Initial episode was said to be about 5 years ago about a year after her diagnosis of diabetes. Had been managed by her primary care physician on several ocassions for recurrence however current episode has persisted for over 6 months. She has a history of callus over her left great toe and had been seen by podiatry. Appropriate footwear was recommended however patient's does report that she has not been compliant with this. She also walks around barefooted a lot and does not routinely inspect her foot. She reports good control of her A1c however last check was about 6 months ago and was said to be around 6. She denies any discharge from her left foot, chills, fever, nausea, vomiting or otherwise feeling of unwell. Progress of Wound: Improving. - Physical Exam Vital Signs Temp Pulse Resp BP 98.7 F 72 16 193/92 H 10/14/17 12:02 10/14/17 12:02 10/14/17 12:02 10/14/17 12:02 General: Alert, Oriented x3, Cooperative, No apparent distress HEENT: Atraumatic, Normocephalic Oral: Moist Mucosa Neck: Supple Lungs: Normal air movement Cardiovascular: Regular rate Abdomen: Soft Extremities: No cyanosis Wound Measurements and Assessment WC - Nurse 1 - General Ulcer Measurement Start: 10/07/17 08:34 Freq: Status: Active Protocol: Activity Type Activity Date Activity User E-Sign Co-Sign Detail Recorded Client Recorded Date Recorded By Document 10/14/17 12:02 [facility] [id number] 10/14/17 12:09 [facility] 10/14/17 12:02 Wound Center Nurse 1 [Ulcer Assessment Protocol: WC.WD.LOC] #1 L plantar met head -Combined with other wound No -Current Size (cm) - Length 0.3 -Current Size (cm) - Width 0.3 -Current Size (cm) - Depth 0.1 -Total Square Cm 0.09 -Photo Taken No -Tunneling No -Undermining/Tunneling No -Exudate Amt None Present (0 %) -Wound Margin Distinct, Outline Attached -Granulation Amt None Present (0 %) -Slough/Fibrin Yes -Necrosis Amt Large (67-100%) -Necrotic Tissue Type Eschar -Structure Exposed N/A -Texture (Gisella-wound Skin Appearance) Callus -Moisture (Gisella-wound Skin Appearance Dry/Scaly ) -Color (Gisella-wound Skin Appearance) Assessed -Temperature (Gisella-wound Skin No Abnormality Appearance) (Pt Warm) -Tenderness on Palpation (Gisella-wound No Skin Appearance) -Ulcer Cleansing Rinsed/ Irrigated with Saline -Foul Odor after Cleansing No -Anesthetic Used 4% Lidocaine Solution [Edema Assessment] -Lower Limb Edema Present Yes -Left Calf (cm) 34.5 -Left Ankle (cm) 18 - Nurse 2 - General Ulcer CM Notes Start: 10/07/17 08:34 Freq: Status: Active Protocol: Activity Type Activity Date Activity User E-Sign Co-Sign Detail Recorded Client Recorded Date Recorded By Document 10/14/17 12:25 [id number] 10/14/17 12:27 DV 10/14/17 12:25 Wound Center Nurse 2 [Procedure/Treatment] #1 L plantar met head -Time 12:26 -Correct Patient Yes -Correct Side, Site, Position Yes -Correct Procedure Yes -Procedure Performed Yes -Type of Procedure Debridement -Clinical Debridement Subcutaneous -Post Debridement Size (cm) - Length 2.0 -Post Debridement Size (cm) - Width 2.0 -Post Debridement Size (cm) - Depth 0.1 -Total Square Cm 4.00 -Wound/Ulcer Outcome Not Healed -Ulcer Cleansing Rinsed/ Irrigated with Saline -Foul Odor after Cleansing No -Bioengineered Tissue No -Bleeding Controlled with NA -Treatment Response Procedure Tolerated Well [See Physician Procedure note for Specifics] Pain Scale: 0-10 Numeric [Pain] -Is Patient Pain Free? Yes Musculoskeletal: No Muscle Wasting Neurological: Cranial nerves II-XII grossly intact Psych/Mental Status: Normal Affect Debridement Note Post-Debridement Measurements/Treatment WC - Nurse 2 - General Ulcer CM Notes Start: 10/07/17 08:34 Freq: Status: Active Protocol: Activity Type Activity Date Activity User E-Sign Co-Sign Detail Recorded Client Recorded Date Recorded By Document 10/07/17 09:30 DV [id number] 10/07/17 09:37 DV Document 10/14/17 12:25 DV [id number] 10/14/17 12:27 DV 10/07/17 10/14/17 09:30 12:25 Wound Center Nurse 2 #1 L plantar met head -Time 09:31 12:26 -Correct Patient Yes Yes -Correct Side, Site, Position Yes Yes -Correct Procedure Yes Yes -Procedure Performed Yes Yes -Type of Procedure Debridement Debridement -Clinical Debridement Subcutaneous Subcutaneous -Post Debridement Size (cm) - Length 0.3 2.0 -Post Debridement Size (cm) - Width 0.2 2.0 -Post Debridement Size (cm) - Depth 0.1 0.1 -Total Square Cm 0.06 4.00 -Wound/Ulcer Outcome Not Healed Not Healed -Ulcer Cleansing Rinsed/ Rinsed/ Irrigated with Irrigated with Saline Saline -Foul Odor after Cleansing No No -Bioengineered Tissue No No -Cetacaine [place] No -Bleeding Controlled with Pressure NA -Treatment Response Procedure Procedure Tolerated Well Tolerated Well Pain Scale: 0-10 Numeric Is Patient Pain Free? Yes Yes Wound debrided: Left foot ulcer ( Plantar ) Wound Grade/Stage: Merino 1 Type of Debridement: Excisional debridement Anesthesia Used: 5% Lidocaine Gel Depth: Down to and including healthy tissue, in the subcutaneous layer Percentage of wound debrided: 100 Instrument Used: 3mm curette Tissue Removed: Devitalized tissue. Severity: Fat Layer Exposed Amount of bleeding with debridement: Mild Bleeding Controlled with: Pressure Patient tolerated procedure well Assessment/Plan Assessment: Grade 1 diabetic foot ulcer of left great toe metatarsal head. Diabetes mellitus type 2. Poorly controlled blood pressure. Plan: Modest reduction in wound size over the past week from 0.3/0.3 to 0.2/0.2. She attests to wearing her off loading boot daily. Debridement done as documented above, procedure well tolerated. Continue hydrogel. Apply daily. Adaptic and guaze covering over area. Continue protein rich diet. Wear foot wear at all times. Follow-up in 1 week. This note was generated with [employer] dictation software. It may contain incorrect words, spelling, and punctuation that were not noted in checking the note before signing.
--- NOTE | 2017-10-14 18:05 | PN.PCM_ITS ---
(1) Diabetic foot ulcer Status: Acute Qualifiers: Code(s): E11.621 - Type 2 diabetes mellitus with foot ulcer; L97.509 - Non- pressure chronic ulcer of other part of unspecified foot with unspecified severity (2) Diabetes mellitus type 2 in obese Status: Chronic Code(s): E11.69 - Type 2 diabetes mellitus with other specified complication; E66.9 - Obesity, unspecified (3) Diabetic neuropathy Status: Chronic Code(s): E11.40 - Type 2 diabetes mellitus with diabetic neuropathy, unspecified Type of Wound Date of Service: 10/14/17 Chief Complaint: Chronic recurrent left foot ulcer. History of Wound: Ms. Sullivan is a 57yo with PMH of hypertension, diabetes mellitus type 2 [id number], chronic left foot ulcer and diabetic neuropathy. She was referred here by primary care physician due to chronic recurrent nonhealing left foot ulcer. Initial episode was said to be about 5 years ago about a year after her diagnosis of diabetes. Had been managed by her primary care physician on several ocassions for recurrence however current episode has persisted for over 6 months. She has a history of callus over her left great toe and had been seen by podiatry. Appropriate footwear was recommended however patient's does report that she has not been compliant with this. She also walks around barefooted a lot and does not routinely inspect her foot. She reports good control of her A1c however last check was about 6 months ago and was said to be around 6. She denies any discharge from her left foot, chills, fever, nausea, vomiting or otherwise feeling of unwell. Progress of Wound: Improving. - Physical Exam Vital Signs Temp Pulse Resp BP 98.7 F 72 16 193/92 H 10/14/17 12:02 10/14/17 12:02 10/14/17 12:02 10/14/17 12:02 General: Alert, Oriented x3, Cooperative, No apparent distress HEENT: Atraumatic, Normocephalic Oral: Moist Mucosa Neck: Supple Lungs: Normal air movement Cardiovascular: Regular rate Abdomen: Soft Extremities: No cyanosis Wound Measurements and Assessment WC - Nurse 1 - General Ulcer Measurement Start: 10/07/17 08:34 Freq: Status: Active Protocol: Activity Type Activity Date Activity User E-Sign Co-Sign Detail Recorded Client Recorded Date Recorded By Document 10/14/17 12:02 [facility] [id number] 10/14/17 12:09 [facility] 10/14/17 12:02 Wound Center Nurse 1 [Ulcer Assessment Protocol: WC.WD.LOC] #1 L plantar met head -Combined with other wound No -Current Size (cm) - Length 0.3 -Current Size (cm) - Width 0.3 -Current Size (cm) - Depth 0.1 -Total Square Cm 0.09 -Photo Taken No -Tunneling No -Undermining/Tunneling No -Exudate Amt None Present (0 %) -Wound Margin Distinct, Outline Attached -Granulation Amt None Present (0 %) -Slough/Fibrin Yes -Necrosis Amt Large (67-100%) -Necrotic Tissue Type Eschar -Structure Exposed N/A -Texture (Gisella-wound Skin Appearance) Callus -Moisture (Gisella-wound Skin Appearance Dry/Scaly ) -Color (Gisella-wound Skin Appearance) Assessed -Temperature (Gisella-wound Skin No Abnormality Appearance) (Pt Warm) -Tenderness on Palpation (Gisella-wound No Skin Appearance) -Ulcer Cleansing Rinsed/ Irrigated with Saline -Foul Odor after Cleansing No -Anesthetic Used 4% Lidocaine Solution [Edema Assessment] -Lower Limb Edema Present Yes -Left Calf (cm) 34.5 -Left Ankle (cm) 18 - Nurse 2 - General Ulcer CM Notes Start: 10/07/17 08:34 Freq: Status: Active Protocol: Activity Type Activity Date Activity User E-Sign Co-Sign Detail Recorded Client Recorded Date Recorded By Document 10/14/17 12:25 [id number] 10/14/17 12:27 DV 10/14/17 12:25 Wound Center Nurse 2 [Procedure/Treatment] #1 L plantar met head -Time 12:26 -Correct Patient Yes -Correct Side, Site, Position Yes -Correct Procedure Yes -Procedure Performed Yes -Type of Procedure Debridement -Clinical Debridement Subcutaneous -Post Debridement Size (cm) - Length 2.0 -Post Debridement Size (cm) - Width 2.0 -Post Debridement Size (cm) - Depth 0.1 -Total Square Cm 4.00 -Wound/Ulcer Outcome Not Healed -Ulcer Cleansing Rinsed/ Irrigated with Saline -Foul Odor after Cleansing No -Bioengineered Tissue No -Bleeding Controlled with NA -Treatment Response Procedure Tolerated Well [See Physician Procedure note for Specifics] Pain Scale: 0-10 Numeric [Pain] -Is Patient Pain Free? Yes Musculoskeletal: No Muscle Wasting Neurological: Cranial nerves II-XII grossly intact Psych/Mental Status: Normal Affect Debridement Note Post-Debridement Measurements/Treatment WC - Nurse 2 - General Ulcer CM Notes Start: 10/07/17 08:34 Freq: Status: Active Protocol: Activity Type Activity Date Activity User E-Sign Co-Sign Detail Recorded Client Recorded Date Recorded By Document 10/07/17 09:30 DV [id number] 10/07/17 09:37 DV Document 10/14/17 12:25 DV [id number] 10/14/17 12:27 DV 10/07/17 10/14/17 09:30 12:25 Wound Center Nurse 2 #1 L plantar met head -Time 09:31 12:26 -Correct Patient Yes Yes -Correct Side, Site, Position Yes Yes -Correct Procedure Yes Yes -Procedure Performed Yes Yes -Type of Procedure Debridement Debridement -Clinical Debridement Subcutaneous Subcutaneous -Post Debridement Size (cm) - Length 0.3 2.0 -Post Debridement Size (cm) - Width 0.2 2.0 -Post Debridement Size (cm) - Depth 0.1 0.1 -Total Square Cm 0.06 4.00 -Wound/Ulcer Outcome Not Healed Not Healed -Ulcer Cleansing Rinsed/ Rinsed/ Irrigated with Irrigated with Saline Saline -Foul Odor after Cleansing No No -Bioengineered Tissue No No -Cetacaine [place] No -Bleeding Controlled with Pressure NA -Treatment Response Procedure Procedure Tolerated Well Tolerated Well Pain Scale: 0-10 Numeric Is Patient Pain Free? Yes Yes Wound debrided: Left foot ulcer ( Plantar ) Wound Grade/Stage: Merino 1 Type of Debridement: Excisional debridement Anesthesia Used: 5% Lidocaine Gel Depth: Down to and including healthy tissue, in the subcutaneous layer Percentage of wound debrided: 100 Instrument Used: 3mm curette Tissue Removed: Devitalized tissue. Severity: Fat Layer Exposed Amount of bleeding with debridement: Mild Bleeding Controlled with: Pressure Patient tolerated procedure well Assessment/Plan Assessment: Grade 1 diabetic foot ulcer of left great toe metatarsal head. Diabetes mellitus type 2. Poorly controlled blood pressure. Plan: Modest reduction in wound size over the past week from 0.3/0.3 to 0.2/ 0.2. She attests to wearing her off loading boot daily. Debridement done as documented above, procedure well tolerated. Continue hydrogel. Apply daily. Adaptic and guaze covering over area. Continue protein rich diet. Wear foot wear at all times. Follow-up in 1 week. This note was generated with get2play dictation software. It may contain incorrect words, spelling, and punctuation that were not noted in checking the note before signing.
[2017-10-21 08:31] VITALS: BP 182/101; PULSE 92; RESP 20; TEMP 37
--- NOTE | 2017-10-21 09:21 | PCM.WC.PN ---
(1) Diabetic foot ulcer Status: Acute Current Visit: No Qualifiers: Code(s): E11.621 - Type 2 diabetes mellitus with foot ulcer; L97.509 - Non-pressure chronic ulcer of other part of unspecified foot with unspecified severity (2) Diabetes mellitus type 2 in obese Status: Chronic Current Visit: No Code(s): E11.69 - Type 2 diabetes mellitus with other specified complication; E66.9 - Obesity, unspecified (3) Diabetic neuropathy Status: Chronic Current Visit: No Code(s): E11.40 - Type 2 diabetes mellitus with diabetic neuropathy, unspecified Type of Wound Date of Service: 10/21/17 Chief Complaint: Chronic recurrent left foot ulcer. History of Wound: Ms. Sullivan is a 57yo with PMH of hypertension, diabetes mellitus type 2 [id number], chronic left foot ulcer and diabetic neuropathy. She was referred here by primary care physician due to chronic recurrent nonhealing left foot ulcer. Initial episode was said to be about 5 years ago about a year after her diagnosis of diabetes. Had been managed by her primary care physician on several ocassions for recurrence however current episode has persisted for over 6 months. She has a history of callus over her left great toe and had been seen by podiatry. Appropriate footwear was recommended however patient's does report that she has not been compliant with this. She also walks around barefooted a lot and does not routinely inspect her foot. She reports good control of her A1c however last check was about 6 months ago and was said to be around 6. She denies any discharge from her left foot, chills, fever, nausea, vomiting or otherwise feeling of unwell. Progress of Wound: Improving. - Physical Exam Vital Signs Temp Pulse Resp BP 98.6 F 92 20 H 182/101 H 10/21/17 08:31 10/21/17 08:31 10/21/17 08:31 10/21/17 08:31 General: Alert, Oriented x3, Cooperative, No apparent distress HEENT: Atraumatic, Normocephalic Oral: Moist Mucosa Neck: Supple Lungs: Normal air movement Cardiovascular: Regular rate Abdomen: Soft Extremities: No cyanosis, No edema Skin: Ulcer/ Wound Wound Measurements and Assessment WC - Nurse 1 - General Ulcer Measurement Start: 10/07/17 08:34 Freq: Status: Active Protocol: Activity Type Activity Date Activity User E-Sign Co-Sign Detail Recorded Client Recorded Date Recorded By Document 10/21/17 08:31 DL [id number] 10/21/17 08:35 DL 10/21/17 08:31 Wound Center Nurse 1 [Ulcer Assessment Protocol: WC.WD.LOC] #1 L plantar met head -Combined with other wound No -Current Size (cm) - Length 0.2 -Current Size (cm) - Width 0.2 -Current Size (cm) - Depth 0.1 -Total Square Cm 0.04 -Date of Last Picture (Recall this 09/30/17 field) -Photo Taken No -Epithelialization None Present -Tunneling No -Undermining/Tunneling No -Circular Undermining No -Classification - Thickness Full Thickness without Exposed Support Structure -Classification - Merino Grading ( Grade 2 Diabetic Ulcer) -Change in Wound Grade/Stage No Query Text:If change please identify the Stage/Grade in the comment (ie. S2 G3) -Exudate Amt None Present (0 %) -Wound Margin Distinct, Outline Attached -Granulation Amt None Present (0 %) -Granulation Quality N/A -Slough/Fibrin Yes -Necrosis Amt None Present (0 %) -Necrotic Tissue Type Adherent Slough -Structure Exposed N/A -Texture (Gisella-wound Skin Appearance) Callus -Moisture (Gisella-wound Skin Appearance No Abnormality ) -Color (Gisella-wound Skin Appearance) No Abnormality -Temperature (Gisella-wound Skin No Abnormality Appearance) (Pt Warm) -Tenderness on Palpation (Gisella-wound No Skin Appearance) -Ulcer Cleansing Rinsed/ Irrigated with Saline -Foul Odor after Cleansing No -Anesthetic Used 4% Lidocaine Solution - Nurse 2 - General Ulcer CM Notes Start: 10/07/17 08:34 Freq: Status: Active Protocol: Activity Type Activity Date Activity User E-Sign Co-Sign Detail Recorded Client Recorded Date Recorded By Document 10/21/17 09:00 DV [id number] 10/21/17 09:06 DV 10/21/17 09:00 Wound Center Nurse 2 [Procedure/Treatment] -Time 09:02 -Correct Patient Yes -Correct Side, Site, Position Yes -Correct Procedure Yes -Procedure Performed Yes -Type of Procedure Debridement -Clinical Debridement Subcutaneous -Post Debridement Size (cm) - Length 0.1 -Post Debridement Size (cm) - Width 0.1 -Post Debridement Size (cm) - Depth 0.1 -Total Square Cm 0.01 -Wound/Ulcer Outcome Not Healed -Ulcer Cleansing Rinsed/ Irrigated with Saline -Foul Odor after Cleansing No -Bioengineered Tissue No -Bleeding Controlled with NA Pressure -Treatment Response Procedure Tolerated Well [See Physician Procedure note for Specifics] Pain Scale: 0-10 Numeric [Pain] -Is Patient Pain Free? Yes Musculoskeletal: No Muscle Wasting Neurological: Cranial nerves II-XII grossly intact Debridement Note Post-Debridement Measurements/Treatment WC - Nurse 2 - General Ulcer CM Notes Start: 10/07/17 08:34 Freq: Status: Active Protocol: Activity Type Activity Date Activity User E-Sign Co-Sign Detail Recorded Client Recorded Date Recorded By Document 10/07/17 09:30 DV [id number] 10/07/17 09:37 DV Document 10/14/17 12:25 DV [id number] 10/14/17 12:27 DV Document 10/21/17 09:00 DV [id number] 10/21/17 09:06 DV 10/07/17 10/14/17 10/21/17 09:30 12:25 09:00 Wound Center Nurse 2 #1 L plantar met head -Time 09:31 12:26 09:02 -Correct Patient Yes Yes Yes -Correct Side, Site, Position Yes Yes Yes -Correct Procedure Yes Yes Yes -Procedure Performed Yes Yes Yes -Type of Procedure Debridement Debridement Debridement -Clinical Debridement Subcutaneous Subcutaneous Subcutaneous -Post Debridement Size (cm) - Length 0.3 0.2 0.1 -Post Debridement Size (cm) - Width 0.2 0.2 0.1 -Post Debridement Size (cm) - Depth 0.1 0.1 0.1 -Total Square Cm 0.06 0.04 0.01 -Wound/Ulcer Outcome Not Healed Not Healed Not Healed -Ulcer Cleansing Rinsed/ Rinsed/ Rinsed/ Irrigated with Irrigated with Irrigated with Saline Saline Saline -Foul Odor after Cleansing No No No -Bioengineered Tissue No No No -Cetacaine [place] No -Bleeding Controlled with Pressure NA NA Pressure -Treatment Response Procedure Procedure Procedure Tolerated Well Tolerated Well Tolerated Well Pain Scale: 0-10 Numeric Is Patient Pain Free? Yes Yes Yes Wound debrided: Left Foot,plantar. Wound Grade/Stage: Merino I Type of Debridement: Excisional debridement Anesthesia Used: 4% Lidocaine Solution Depth: Down to and including healthy tissue Percentage of wound debrided: 100 Instrument Used: 3mm curette, #15 blade Tissue Removed: Devitalized tissue Severity: Limited To Skin Breakdown Amount of bleeding with debridement: Mild Bleeding Controlled with: Pressure Patient tolerated procedure well Assessment/Plan Assessment: Grade 1 diabetic foot ulcer of left great toe metatarsal head. Diabetes mellitus type 2. Poorly controlled blood pressure. Plan: Minimal area left. Debridement and callus removal done today. Will switch dressing to promogran every other day. Adaptic and guaze covering over area. Advised to continue off loading boot and stay off her feet as much as possible. Continue protein rich diet. Wear foot wear at all times. Follow-up in 1 week. This note was generated with Drobo dictation software. It may contain incorrect words, spelling, and punctuation that were not noted in checking the note before signing.
--- NOTE | 2017-10-21 09:26 | PN.PCM_ITS ---
(1) Diabetic foot ulcer Status: Acute Current Visit: No Qualifiers: Code(s): E11.621 - Type 2 diabetes mellitus with foot ulcer; L97.509 - Non- pressure chronic ulcer of other part of unspecified foot with unspecified severity (2) Diabetes mellitus type 2 in obese Status: Chronic Current Visit: No Code(s): E11.69 - Type 2 diabetes mellitus with other specified complication; E66.9 - Obesity, unspecified (3) Diabetic neuropathy Status: Chronic Current Visit: No Code(s): E11.40 - Type 2 diabetes mellitus with diabetic neuropathy, unspecified Type of Wound Date of Service: 10/21/17 Chief Complaint: Chronic recurrent left foot ulcer. History of Wound: Ms. Sullivan is a 57yo with PMH of hypertension, diabetes mellitus type 2 [id number], chronic left foot ulcer and diabetic neuropathy. She was referred here by primary care physician due to chronic recurrent nonhealing left foot ulcer. Initial episode was said to be about 5 years ago about a year after her diagnosis of diabetes. Had been managed by her primary care physician on several ocassions for recurrence however current episode has persisted for over 6 months. She has a history of callus over her left great toe and had been seen by podiatry. Appropriate footwear was recommended however patient's does report that she has not been compliant with this. She also walks around barefooted a lot and does not routinely inspect her foot. She reports good control of her A1c however last check was about 6 months ago and was said to be around 6. She denies any discharge from her left foot, chills, fever, nausea, vomiting or otherwise feeling of unwell. Progress of Wound: Improving. - Physical Exam Vital Signs Temp Pulse Resp BP 98.6 F 92 20 H 182/101 H 10/21/17 08:31 10/21/17 08:31 10/21/17 08:31 10/21/17 08:31 General: Alert, Oriented x3, Cooperative, No apparent distress HEENT: Atraumatic, Normocephalic Oral: Moist Mucosa Neck: Supple Lungs: Normal air movement Cardiovascular: Regular rate Abdomen: Soft Extremities: No cyanosis, No edema Skin: Ulcer/ Wound Wound Measurements and Assessment WC - Nurse 1 - General Ulcer Measurement Start: 10/07/17 08:34 Freq: Status: Active Protocol: Activity Type Activity Date Activity User E-Sign Co-Sign Detail Recorded Client Recorded Date Recorded By Document 10/21/17 08:31 DL [id number] 10/21/17 08:35 DL 10/21/17 08:31 Wound Center Nurse 1 [Ulcer Assessment Protocol: WC.WD.LOC] #1 L plantar met head -Combined with other wound No -Current Size (cm) - Length 0.2 -Current Size (cm) - Width 0.2 -Current Size (cm) - Depth 0.1 -Total Square Cm 0.04 -Date of Last Picture (Recall this 09/30/17 field) -Photo Taken No -Epithelialization None Present -Tunneling No -Undermining/Tunneling No -Circular Undermining No -Classification - Thickness Full Thickness without Exposed Support Structure -Classification - Merino Grading ( Grade 2 Diabetic Ulcer) -Change in Wound Grade/Stage No Query Text:If change please identify the Stage/Grade in the comment (ie. S2 G3) -Exudate Amt None Present (0 %) -Wound Margin Distinct, Outline Attached -Granulation Amt None Present (0 %) -Granulation Quality N/A -Slough/Fibrin Yes -Necrosis Amt None Present (0 %) -Necrotic Tissue Type Adherent Slough -Structure Exposed N/A -Texture (Gisella-wound Skin Appearance) Callus -Moisture (Gisella-wound Skin Appearance No Abnormality ) -Color (Gisella-wound Skin Appearance) No Abnormality -Temperature (Gisella-wound Skin No Abnormality Appearance) (Pt Warm) -Tenderness on Palpation (Gisella-wound No Skin Appearance) -Ulcer Cleansing Rinsed/ Irrigated with Saline -Foul Odor after Cleansing No -Anesthetic Used 4% Lidocaine Solution - Nurse 2 - General Ulcer CM Notes Start: 10/07/17 08:34 Freq: Status: Active Protocol: Activity Type Activity Date Activity User E-Sign Co-Sign Detail Recorded Client Recorded Date Recorded By Document 10/21/17 09:00 DV [id number] 10/21/17 09:06 DV 10/21/17 09:00 Wound Center Nurse 2 [Procedure/Treatment] -Time 09:02 -Correct Patient Yes -Correct Side, Site, Position Yes -Correct Procedure Yes -Procedure Performed Yes -Type of Procedure Debridement -Clinical Debridement Subcutaneous -Post Debridement Size (cm) - Length 0.1 -Post Debridement Size (cm) - Width 0.1 -Post Debridement Size (cm) - Depth 0.1 -Total Square Cm 0.01 -Wound/Ulcer Outcome Not Healed -Ulcer Cleansing Rinsed/ Irrigated with Saline -Foul Odor after Cleansing No -Bioengineered Tissue No -Bleeding Controlled with NA Pressure -Treatment Response Procedure Tolerated Well [See Physician Procedure note for Specifics] Pain Scale: 0-10 Numeric [Pain] -Is Patient Pain Free? Yes Musculoskeletal: No Muscle Wasting Neurological: Cranial nerves II-XII grossly intact Debridement Note Post-Debridement Measurements/Treatment WC - Nurse 2 - General Ulcer CM Notes Start: 10/07/17 08:34 Freq: Status: Active Protocol: Activity Type Activity Date Activity User E-Sign Co-Sign Detail Recorded Client Recorded Date Recorded By Document 10/07/17 09:30 DV [id number] 10/07/17 09:37 DV Document 10/14/17 12:25 DV [id number] 10/14/17 12:27 DV Document 10/21/17 09:00 DV [id number] 10/21/17 09:06 DV 10/07/17 10/14/17 10/21/17 09:30 12:25 09:00 Wound Center Nurse 2 #1 L plantar met head -Time 09:31 12:26 09:02 -Correct Patient Yes Yes Yes -Correct Side, Site, Position Yes Yes Yes -Correct Procedure Yes Yes Yes -Procedure Performed Yes Yes Yes -Type of Procedure Debridement Debridement Debridement -Clinical Debridement Subcutaneous Subcutaneous Subcutaneous -Post Debridement Size (cm) - Length 0.3 0.2 0.1 -Post Debridement Size (cm) - Width 0.2 0.2 0.1 -Post Debridement Size (cm) - Depth 0.1 0.1 0.1 -Total Square Cm 0.06 0.04 0.01 -Wound/Ulcer Outcome Not Healed Not Healed Not Healed -Ulcer Cleansing Rinsed/ Rinsed/ Rinsed/ Irrigated with Irrigated with Irrigated with Saline Saline Saline -Foul Odor after Cleansing No No No -Bioengineered Tissue No No No -Cetacaine [place] No -Bleeding Controlled with Pressure NA NA Pressure -Treatment Response Procedure Procedure Procedure Tolerated Well Tolerated Well Tolerated Well Pain Scale: 0-10 Numeric Is Patient Pain Free? Yes Yes Yes Wound debrided: Left Foot,plantar. Wound Grade/Stage: Merino I Type of Debridement: Excisional debridement Anesthesia Used: 4% Lidocaine Solution Depth: Down to and including healthy tissue Percentage of wound debrided: 100 Instrument Used: 3mm curette, #15 blade Tissue Removed: Devitalized tissue Severity: Limited To Skin Breakdown Amount of bleeding with debridement: Mild Bleeding Controlled with: Pressure Patient tolerated procedure well Assessment/Plan Assessment: Grade 1 diabetic foot ulcer of left great toe metatarsal head. Diabetes mellitus type 2. Poorly controlled blood pressure. Plan: Minimal area left. Debridement and callus removal done today. Will switch dressing to promogran every other day. Adaptic and guaze covering over area. Advised to continue off loading boot and stay off her feet as much as possible. Continue protein rich diet. Wear foot wear at all times. Follow-up in 1 week. This note was generated with [employer] dictation software. It may contain incorrect words, spelling, and punctuation that were not noted in checking the note before signing.
[2017-10-28 09:24] VITALS: BP 148/92; PULSE 76; RESP 18; TEMP 36.3
--- NOTE | 2017-10-28 17:12 | PCM.WC.PN ---
(1) Diabetic foot ulcer Status: Acute Current Visit: Yes Qualifiers: Code(s): E11.621 - Type 2 diabetes mellitus with foot ulcer; L97.509 - Non-pressure chronic ulcer of other part of unspecified foot with unspecified severity (2) Diabetes mellitus type 2 in obese Status: Chronic Current Visit: Yes Code(s): E11.69 - Type 2 diabetes mellitus with other specified complication; E66.9 - Obesity, unspecified (3) Diabetic neuropathy Status: Chronic Current Visit: No Code(s): E11.40 - Type 2 diabetes mellitus with diabetic neuropathy, unspecified Type of Wound Date of Service: 10/28/17 Chief Complaint: Chronic recurrent left foot ulcer. History of Wound: Ms. Sullivan is a 57yo with PMH of hypertension, diabetes mellitus type 2 [id number], chronic left foot ulcer and diabetic neuropathy. She was referred here by primary care physician due to chronic recurrent nonhealing left foot ulcer. Initial episode was said to be about 5 years ago about a year after her diagnosis of diabetes. Had been managed by her primary care physician on several ocassions for recurrence however current episode has persisted for over 6 months. She has a history of callus over her left great toe and had been seen by podiatry. Appropriate footwear was recommended however patient's does report that she has not been compliant with this. She also walks around barefooted a lot and does not routinely inspect her foot. She reports good control of her A1c however last check was about 6 months ago and was said to be around 6. She denies any discharge from her left foot, chills, fever, nausea, vomiting or otherwise feeling of unwell. Progress of Wound: Healed. - Physical Exam Vital Signs Temp Pulse Resp BP 97.3 F L 76 18 148/92 H 10/28/17 09:24 10/28/17 09:24 10/28/17 09:24 10/28/17 09:24 General: Alert, Oriented x3, Cooperative, No apparent distress HEENT: Atraumatic, Normocephalic Oral: Moist Mucosa Neck: Supple Lungs: Normal air movement Cardiovascular: Regular rate Extremities: No cyanosis Wound Measurements and Assessment WC - Nurse 1 - General Ulcer Measurement Start: 10/07/17 08:34 Freq: Status: Active Protocol: Activity Type Activity Date Activity User E-Sign Co-Sign Detail Recorded Client Recorded Date Recorded By Document 10/28/17 09:24 RB [id number] 10/28/17 09:28 RB 10/28/17 09:24 Wound Center Nurse 1 [Ulcer Assessment] #1 L plantar met head -Combined with other wound No -Current Size (cm) - Length 0.1 -Current Size (cm) - Width 0.1 -Current Size (cm) - Depth 0.1 -Total Square Cm 0.01 -Photo Taken Yes -Epithelialization Small 1-33% -Tunneling No -Undermining/Tunneling No -Circular Undermining No -Classification - Merino Grading ( Grade 2 Diabetic Ulcer) -Exudate Amt Small (1-33%) -Exudate Type Serosanguineous -Wound Margin Distinct, Outline Attached -Granulation Amt Large (67-100%) -Granulation Quality [place] -Slough/Fibrin Yes -Necrosis Amt Small (1-33%) -Necrotic Tissue Type Adherent Slough -Structure Exposed N/A -Texture (Gisella-wound Skin Appearance) Assessed Callus -Moisture (Gisella-wound Skin Appearance Assessed ) -Color (Gisella-wound Skin Appearance) Assessed -Temperature (Gisella-wound Skin No Abnormality Appearance) (Pt Warm) -Tenderness on Palpation (Gisella-wound No Skin Appearance) -Ulcer Cleansing Rinsed/ Irrigated with Saline -Foul Odor after Cleansing No -Anesthetic Used 5% Lidocaine Gel WC - Nurse 2 - General Ulcer CM Notes Start: 10/07/17 08:34 Freq: Status: Active Protocol: Activity Type Activity Date Activity User E-Sign Co-Sign Detail Recorded Client Recorded Date Recorded By Document 10/28/17 10:01 DV [id number] 10/28/17 10:04 DV 10/28/17 10:01 Wound Center Nurse 2 [Procedure/Treatment] -Time 10:01 -Correct Patient Yes -Correct Side, Site, Position Yes -Correct Procedure Yes -Procedure Performed Yes -Type of Procedure Debridement -Clinical Debridement Subcutaneous Selective -Post Debridement Size (cm) - Length 0 -Post Debridement Size (cm) - Width 0 -Post Debridement Size (cm) - Depth 0 -Total Square Cm 0 -Wound/Ulcer Outcome Healed- Epithelialized -Ulcer Cleansing Rinsed/ Irrigated with Saline -Foul Odor after Cleansing No -Bioengineered Tissue No -Bleeding Controlled with NA -Treatment Response Procedure Tolerated Well [See Physician Procedure note for Specifics] Pain Scale: 0-10 Numeric [Pain] -Is Patient Pain Free? Yes Musculoskeletal: No Muscle Wasting Neurological: Cranial nerves II-XII grossly intact Psych/Mental Status: Normal Affect Debridement Note Post-Debridement Measurements/Treatment WC - Nurse 2 - General Ulcer CM Notes Start: 10/07/17 08:34 Freq: Status: Active Protocol: Activity Type Activity Date Activity User E-Sign Co-Sign Detail Recorded Client Recorded Date Recorded By Document 10/07/17 09:30 DV [id number] 10/07/17 09:37 DV Document 10/14/17 12:25 DV [id number] 10/14/17 12:27 DV Document 10/21/17 09:00 DV [id number] 10/21/17 09:06 DV Document 10/28/17 10:01 DV [id number] 10/28/17 10:04 DV 10/07/17 10/14/17 10/21/17 09:30 12:25 09:00 Wound Center Nurse 2 #1 L plantar met head -Time 09:31 12:26 09:02 -Correct Patient Yes Yes Yes -Correct Side, Site, Position Yes Yes Yes -Correct Procedure Yes Yes Yes -Procedure Performed Yes Yes Yes -Type of Procedure Debridement Debridement Debridement -Clinical Debridement Subcutaneous Subcutaneous Subcutaneous -Post Debridement Size (cm) - Length 0.3 0.2 0.1 -Post Debridement Size (cm) - Width 0.2 0.2 0.1 -Post Debridement Size (cm) - Depth 0.1 0.1 0.1 -Total Square Cm 0.06 0.04 0.01 -Wound/Ulcer Outcome Not Healed Not Healed Not Healed -Ulcer Cleansing Rinsed/ Rinsed/ Rinsed/ Irrigated with Irrigated with Irrigated with Saline Saline Saline -Foul Odor after Cleansing No No No -Bioengineered Tissue No No No -Cetacaine [place] No -Bleeding Controlled with Pressure NA NA Pressure -Treatment Response Procedure Procedure Procedure Tolerated Well Tolerated Well Tolerated Well Pain Scale: 0-10 Numeric Is Patient Pain Free? Yes Yes Yes 10/28/17 10:01 Wound Center Nurse 2 #1 L plantar met head -Time 10:01 -Correct Patient Yes -Correct Side, Site, Position Yes -Correct Procedure Yes -Procedure Performed Yes -Type of Procedure Debridement -Clinical Debridement Subcutaneous Selective -Post Debridement Size (cm) - Length 0 -Post Debridement Size (cm) - Width 0 -Post Debridement Size (cm) - Depth 0 -Total Square Cm 0 -Wound/Ulcer Outcome Healed- Epithelialized -Ulcer Cleansing Rinsed/ Irrigated with Saline -Foul Odor after Cleansing No -Bioengineered Tissue No -Cetacaine [place] -Bleeding Controlled with NA -Treatment Response Procedure Tolerated Well Pain Scale: 0-10 Numeric Is Patient Pain Free? Yes Wound debrided: left Foot Plantar Wound Grade/Stage: Wagmer I Type of Debridement: Selective debridement Depth: Down to and including healthy tissue Instrument Used: 3mm curette, #15 blade Tissue Removed: callus Severity: Limited To Skin Breakdown Amount of bleeding with debridement: None Patient tolerated procedure well Assessment/Plan Active Problems Diabetes mellitus type 2 in obese (Chronic) Diabetic foot ulcer (Acute) Assessment: Grade 1 diabetic foot ulcer of left great toe metatarsal head. - Healed. Diabetes mellitus type 2. Plan: Wound has healed. More callus removal however done today. She was strongly advised on follow up with her wax pot tender and the need to wear proper foot wear at all times. She has a Great Toe deformity with puts her at increased risk for ulcers. Continue offloading until right foot wear is available. Discharged from the wound center. This note was generated with [employer] dictation software. It may contain incorrect words, spelling, and punctuation that were not noted in checking the note before signing.
--- NOTE | 2017-10-28 17:19 | PN.PCM_ITS ---
(1) Diabetic foot ulcer Status: Acute Current Visit: Yes Qualifiers: Code(s): E11.621 - Type 2 diabetes mellitus with foot ulcer; L97.509 - Non- pressure chronic ulcer of other part of unspecified foot with unspecified severity (2) Diabetes mellitus type 2 in obese Status: Chronic Current Visit: Yes Code(s): E11.69 - Type 2 diabetes mellitus with other specified complication; E66.9 - Obesity, unspecified (3) Diabetic neuropathy Status: Chronic Current Visit: No Code(s): E11.40 - Type 2 diabetes mellitus with diabetic neuropathy, unspecified Type of Wound Date of Service: 10/28/17 Chief Complaint: Chronic recurrent left foot ulcer. History of Wound: Ms. Sullivan is a 57yo with PMH of hypertension, diabetes mellitus type 2 [id number], chronic left foot ulcer and diabetic neuropathy. She was referred here by primary care physician due to chronic recurrent nonhealing left foot ulcer. Initial episode was said to be about 5 years ago about a year after her diagnosis of diabetes. Had been managed by her primary care physician on several ocassions for recurrence however current episode has persisted for over 6 months. She has a history of callus over her left great toe and had been seen by podiatry. Appropriate footwear was recommended however patient's does report that she has not been compliant with this. She also walks around barefooted a lot and does not routinely inspect her foot. She reports good control of her A1c however last check was about 6 months ago and was said to be around 6. She denies any discharge from her left foot, chills, fever, nausea, vomiting or otherwise feeling of unwell. Progress of Wound: Healed. - Physical Exam Vital Signs Temp Pulse Resp BP 97.3 F L 76 18 148/92 H 10/28/17 09:24 10/28/17 09:24 10/28/17 09:24 10/28/17 09:24 General: Alert, Oriented x3, Cooperative, No apparent distress HEENT: Atraumatic, Normocephalic Oral: Moist Mucosa Neck: Supple Lungs: Normal air movement Cardiovascular: Regular rate Extremities: No cyanosis Wound Measurements and Assessment WC - Nurse 1 - General Ulcer Measurement Start: 10/07/17 08:34 Freq: Status: Active Protocol: Activity Type Activity Date Activity User E-Sign Co-Sign Detail Recorded Client Recorded Date Recorded By Document 10/28/17 09:24 RB [id number] 10/28/17 09:28 RB 10/28/17 09:24 Wound Center Nurse 1 [Ulcer Assessment] #1 L plantar met head -Combined with other wound No -Current Size (cm) - Length 0.1 -Current Size (cm) - Width 0.1 -Current Size (cm) - Depth 0.1 -Total Square Cm 0.01 -Photo Taken Yes -Epithelialization Small 1-33% -Tunneling No -Undermining/Tunneling No -Circular Undermining No -Classification - Merino Grading ( Grade 2 Diabetic Ulcer) -Exudate Amt Small (1-33%) -Exudate Type Serosanguineous -Wound Margin Distinct, Outline Attached -Granulation Amt Large (67-100%) -Granulation Quality [place] -Slough/Fibrin Yes -Necrosis Amt Small (1-33%) -Necrotic Tissue Type Adherent Slough -Structure Exposed N/A -Texture (Gisella-wound Skin Appearance) Assessed Callus -Moisture (Gisella-wound Skin Appearance Assessed ) -Color (Gisella-wound Skin Appearance) Assessed -Temperature (Gisella-wound Skin No Abnormality Appearance) (Pt Warm) -Tenderness on Palpation (Gisella-wound No Skin Appearance) -Ulcer Cleansing Rinsed/ Irrigated with Saline -Foul Odor after Cleansing No -Anesthetic Used 5% Lidocaine Gel WC - Nurse 2 - General Ulcer CM Notes Start: 10/07/17 08:34 Freq: Status: Active Protocol: Activity Type Activity Date Activity User E-Sign Co-Sign Detail Recorded Client Recorded Date Recorded By Document 10/28/17 10:01 DV [id number] 10/28/17 10:04 DV 10/28/17 10:01 Wound Center Nurse 2 [Procedure/Treatment] -Time 10:01 -Correct Patient Yes -Correct Side, Site, Position Yes -Correct Procedure Yes -Procedure Performed Yes -Type of Procedure Debridement -Clinical Debridement Subcutaneous Selective -Post Debridement Size (cm) - Length 0 -Post Debridement Size (cm) - Width 0 -Post Debridement Size (cm) - Depth 0 -Total Square Cm 0 -Wound/Ulcer Outcome Healed- Epithelialized -Ulcer Cleansing Rinsed/ Irrigated with Saline -Foul Odor after Cleansing No -Bioengineered Tissue No -Bleeding Controlled with NA -Treatment Response Procedure Tolerated Well [See Physician Procedure note for Specifics] Pain Scale: 0-10 Numeric [Pain] -Is Patient Pain Free? Yes Musculoskeletal: No Muscle Wasting Neurological: Cranial nerves II-XII grossly intact Psych/Mental Status: Normal Affect Debridement Note Post-Debridement Measurements/Treatment WC - Nurse 2 - General Ulcer CM Notes Start: 10/07/17 08:34 Freq: Status: Active Protocol: Activity Type Activity Date Activity User E-Sign Co-Sign Detail Recorded Client Recorded Date Recorded By Document 10/07/17 09:30 DV [id number] 10/07/17 09:37 DV Document 10/14/17 12:25 DV [id number] 10/14/17 12:27 DV Document 10/21/17 09:00 DV [id number] 10/21/17 09:06 DV Document 10/28/17 10:01 DV [id number] 10/28/17 10:04 DV 10/07/17 10/14/17 10/21/17 09:30 12:25 09:00 Wound Center Nurse 2 #1 L plantar met head -Time 09:31 12:26 09:02 -Correct Patient Yes Yes Yes -Correct Side, Site, Position Yes Yes Yes -Correct Procedure Yes Yes Yes -Procedure Performed Yes Yes Yes -Type of Procedure Debridement Debridement Debridement -Clinical Debridement Subcutaneous Subcutaneous Subcutaneous -Post Debridement Size (cm) - Length 0.3 0.2 0.1 -Post Debridement Size (cm) - Width 0.2 0.2 0.1 -Post Debridement Size (cm) - Depth 0.1 0.1 0.1 -Total Square Cm 0.06 0.04 0.01 -Wound/Ulcer Outcome Not Healed Not Healed Not Healed -Ulcer Cleansing Rinsed/ Rinsed/ Rinsed/ Irrigated with Irrigated with Irrigated with Saline Saline Saline -Foul Odor after Cleansing No No No -Bioengineered Tissue No No No -Cetacaine [place] No -Bleeding Controlled with Pressure NA NA Pressure -Treatment Response Procedure Procedure Procedure Tolerated Well Tolerated Well Tolerated Well Pain Scale: 0-10 Numeric Is Patient Pain Free? Yes Yes Yes 10/28/17 10:01 Wound Center Nurse 2 #1 L plantar met head -Time 10:01 -Correct Patient Yes -Correct Side, Site, Position Yes -Correct Procedure Yes -Procedure Performed Yes -Type of Procedure Debridement -Clinical Debridement Subcutaneous Selective -Post Debridement Size (cm) - Length 0 -Post Debridement Size (cm) - Width 0 -Post Debridement Size (cm) - Depth 0 -Total Square Cm 0 -Wound/Ulcer Outcome Healed- Epithelialized -Ulcer Cleansing Rinsed/ Irrigated with Saline -Foul Odor after Cleansing No -Bioengineered Tissue No -Cetacaine [place] -Bleeding Controlled with NA -Treatment Response Procedure Tolerated Well Pain Scale: 0-10 Numeric Is Patient Pain Free? Yes Wound debrided: left Foot Plantar Wound Grade/Stage: Wagmer I Type of Debridement: Selective debridement Depth: Down to and including healthy tissue Instrument Used: 3mm curette, #15 blade Tissue Removed: callus Severity: Limited To Skin Breakdown Amount of bleeding with debridement: None Patient tolerated procedure well Assessment/Plan Active Problems Diabetes mellitus type 2 in obese (Chronic) Diabetic foot ulcer (Acute) Assessment: Grade 1 diabetic foot ulcer of left great toe metatarsal head. - Healed. Diabetes mellitus type 2. Plan: Wound has healed. More callus removal however done today. She was strongly advised on follow up with her director of strategic sourcing and the need to wear proper foot wear at all times. She has a Great Toe deformity with puts her at increased risk for ulcers. Continue offloading until right foot wear is available. Discharged from the wound center. This note was generated with [employer] dictation software. It may contain incorrect words, spelling, and punctuation that were not noted in checking the note before signing.
== END 2017-11-03 23:59 ==
LOC: WC 09:00
PROVIDERS: Family Provider Family Medicine; PCP Family Medicine; Visit Provider Internal Medicine
DX: E11.621 Type 2 diabetes mellitus with foot ulcer (principal); E11.40 Type 2 diabetes mellitus with diabetic neuropathy, unspecified; E66.9 Obesity, unspecified; Z71.3 Dietary counseling and surveillance; I10 Essential (primary) hypertension; L97.522 Non-pressure chronic ulcer of other part of left foot with fat layer exposed; Z91.19 Patient's noncompliance with other medical treatment and regimen
CPT/HCPCS: 11042

== ENCOUNTER 2018-02-23 11:45 | Outpatient (RCR) | payer OTHER, SELFPAY ==
[2018-02-16 13:41] VITALS: BP 182/95; PULSE 62; RESP 18; TEMP 36.1
--- NOTE | 2018-02-16 14:28 | PCM.WC.HP ---
(1) Chronic ulcer of left foot with fat layer exposed Status: Chronic Current Visit: Yes Code(s): L97.522 - Non-pressure chronic ulcer of other part of left foot with fat layer exposed (2) Hallux limitus of left foot Status: Chronic Current Visit: Yes Code(s): M20.5X2 - Other deformities of toe(s) (acquired), left foot (3) Type 2 diabetes mellitus with diabetic polyneuropathy Status: Chronic Current Visit: Yes Code(s): E11.42 - Type 2 diabetes mellitus with diabetic polyneuropathy (4) Malnutrition Status: Chronic Current Visit: Yes Code(s): E46 - Unspecified protein-calorie malnutrition (5) Delayed wound healing Status: Chronic Current Visit: Yes Code(s): T14.8XXD - Other injury of unspecified body region, subsequent encounter History of Present Illness Date of Service: 02/16/18 Chief Complaint: Left foot ulcer History of Wound: This 57-year-old female with multiple comorbidities follows up at the wound care center for follow-up of left foot ulcer. This has been intermittent and chronic. She was recently seen at the [facility] ankle center and was referred here for continued advanced care. She has been changing the dressing daily with hydrogel with collagen. She wears an offloading shoe with Plastizote pocket offloading minor. She takes Glucerna protein supplements daily and was not able to get the Richard covered that was initially recommended. She denies redness or foot pain. She denies fever, chill, nausea, vomiting, loss of appetite. She denies claudication. She does have rest paresthesias that is consistent with neuropathy. Past Medical History Past Medical History: Chronic Problems Chronic ulcer of left foot with fat layer exposed (Chronic) Hallux limitus of left foot (Chronic) Type 2 diabetes mellitus with diabetic polyneuropathy (Chronic) Malnutrition (Chronic) Delayed wound healing (Chronic) Diabetic neuropathy (Chronic) Diabetes mellitus type 2 in obese (Chronic) Allergies/Adverse Reactions: Allergies isradipine [From [facility]] Allergy (Verified 08/26/17 10:37) Unknown prochlorperazine [From Compazine] Allergy (Verified 08/26/17 10:37) Unknown Home Medications: Ambulatory Orders Medication Instructions Recorded Amlodipine [Norvasc] 5 mg PO DAILY 08/26/17 Enalapril Maleate [Vasotec] 20 mg PO BID 08/26/17 Meloxicam 15 mg PO DAILY 08/26/17 Metformin HCl [Metformin HCl ER] 500 mg PO BID 08/26/17 Metoprolol Succinate 100 mg PO BID 08/26/17 Multivitamin [Daily Multiple 1 each PO DAILY 08/26/17 Vitamin] Tizanidine HCl 4 mg PO QHS PRN PRN 08/26/17 Triamcinolone Acetonide [Kenalog] 100 gm TP BID 08/26/17 Gabapentin [Neurontin] 200 mg PO TID 02/16/18 Smoking Status: Never smoker Review of Systems Constitutional: Denies: Chills, Fever, Weakness HEENT: Denies: Hard of Hearing Cardiovascular: Denies: Chest Pain, Claudication Respiratory: Denies: Shortness of Breath Gastrointestinal: Denies: Nausea, Vomiting Musculoskeletal: Denies: Foot Pain, Joint swelling, Joint Tenderness Skin: Reports: Skin Changes, Wounds Neurological: Reports: Balance problems, Numbness, Tingling - Physical Exam Vital Signs Temp Pulse Resp BP 97 F L 62 18 182/95 H 02/16/18 13:41 02/16/18 13:41 02/16/18 13:41 02/16/18 13:41 General: Alert, Oriented x3, Cooperative HEENT: Atraumatic Extremities: No cyanosis, Capillary Refill Less than 3 Seconds - All digits left foot, No Calf Tenderness - Negative Ghazal and Cramer sign bilateral, Diminished Peripheral Pulses - 2 out of 4 DP pulse in 1 out of 4 PT pulse left lower extremity Skin: Ulcer/ Wound - No purulence, no erythema, streaking, no odor, no acute infection left foot. Her skin is atrophic and hairless. The wound bed sub-first metatarsal head has granulation tissue base with no deep capsular bone noted. Wound Measurements and Assessment WC - Nurse 1 - General Ulcer Measurement Start: 02/16/18 13:40 Freq: Status: Active Protocol: Activity Type Activity Date Activity User E-Sign Co-Sign Detail Recorded Client Recorded Date Recorded By Document 02/16/18 13:41 RB [id number] 02/16/18 13:49 RB 02/16/18 13:41 Wound Center Nurse 1 [Ulcer Assessment] 2. L plantar met head -Combined with other wound No -Current Size (cm) - Length 0.1 -Current Size (cm) - Width 0.1 -Current Size (cm) - Depth 0.1 -Total Square Cm 0.01 -Photo Taken Yes -Epithelialization Medium 34-66% -Tunneling No -Undermining/Tunneling No -Circular Undermining No -Classification - Thickness Full Thickness without Exposed Support Structure -Exudate Amt Small (1-33%) -Exudate Type Serosanguineous -Wound Margin Distinct, Outline Attached -Granulation Amt Small (1-33%) -Granulation Quality Snowslip -Slough/Fibrin Yes -Necrosis Amt Small (1-33%) -Necrotic Tissue Type Adherent Slough -Structure Exposed N/A -Texture (Gisella-wound Skin Appearance) Assessed Callus -Moisture (Gisella-wound Skin Appearance Assessed ) -Color (Gisella-wound Skin Appearance) Assessed -Temperature (Gisella-wound Skin No Abnormality Appearance) (Pt Warm) -Tenderness on Palpation (Gisella-wound No Skin Appearance) -Ulcer Cleansing Rinsed/ Irrigated with Saline -Foul Odor after Cleansing No -Anesthetic Used 5% Lidocaine Gel [Edema Assessment] -Lower Limb Edema Present Yes -Right Calf (cm) 36 -Right Ankle (cm) 20.8 -Left Calf (cm) 36 -Left Ankle (cm) 19.5 WC - Nurse 2 - General Ulcer CM Notes Start: 02/16/18 13:40 Freq: Status: Active Protocol: Activity Type Activity Date Activity User E-Sign Co-Sign Detail Recorded Client Recorded Date Recorded By Document 02/16/18 14:09 [email or web address] [id number] 02/16/18 14:10 MAGO 02/16/18 14:09 Wound Center Nurse 2 [Procedure/Treatment] 2. L plantar met head -Time 14:09 -Correct Patient Yes -Correct Side, Site, Position Yes -Correct Procedure Yes -Procedure Performed Yes -Type of Procedure Debridement -Clinical Debridement Subcutaneous -Post Debridement Size (cm) - Length 0.3 -Post Debridement Size (cm) - Width 0.2 -Post Debridement Size (cm) - Depth 0.2 -Total Square Cm 0.06 -Wound/Ulcer Outcome Not Healed -Ulcer Cleansing Rinsed/ Irrigated with Saline -Foul Odor after Cleansing No -Bioengineered Tissue No -Bleeding Controlled with Pressure -Treatment Response Procedure Tolerated Well [See Physician Procedure note for Specifics] Pain Scale: 0-10 Numeric [Pain] -Is Patient Pain Free? Yes Musculoskeletal: No Tenderness to Palpation of Joints or Extremities, Muscle Wasting, - - Decreased light of first metatarsophalangeal joint left foot. Her offloading surgical shoe with dual density offloading pocket is noted to left lower extremity Neurological: - - Lack of epicritic sensation light touch consistent with neuropathy Psych/Mental Status: Normal Affect, Appropriate Debridement Note Post-Debridement Measurements/Treatment WC - Nurse 2 - General Ulcer CM Notes Start: 02/16/18 13:40 Freq: Status: Active Protocol: Activity Type Activity Date Activity User E-Sign Co-Sign Detail Recorded Client Recorded Date Recorded By Document 02/16/18 14:09 [email or web address] [id number] 02/16/18 14:10 MAGO 02/16/18 14:09 Wound Center Nurse 2 2. L plantar met head -Time 14:09 -Correct Patient Yes -Correct Side, Site, Position Yes -Correct Procedure Yes -Procedure Performed Yes -Type of Procedure Debridement -Clinical Debridement Subcutaneous -Post Debridement Size (cm) - Length 0.3 -Post Debridement Size (cm) - Width 0.2 -Post Debridement Size (cm) - Depth 0.2 -Total Square Cm 0.06 -Wound/Ulcer Outcome Not Healed -Ulcer Cleansing Rinsed/ Irrigated with Saline -Foul Odor after Cleansing No -Bioengineered Tissue No -Bleeding Controlled with Pressure -Treatment Response Procedure Tolerated Well Pain Scale: 0-10 Numeric Is Patient Pain Free? Yes Wound debrided: sub first metatarsal head Laterality: Left Wound Grade/Stage: grade 1 Type of Debridement: Excisional debridement Anesthesia Used: 5% Lidocaine Gel Depth: in the subcutaneous layer Percentage of wound debrided: 100 Instrument Used: #15 blade Tissue Removed: fibrous, devitalized subcutaneous, biofilm, slough Severity: Fat Layer Exposed Amount of bleeding with debridement: Mild Bleeding Controlled with: Pressure Patient tolerated procedure well Assessment/Plan Active Problems Chronic ulcer of left foot with fat layer exposed (Chronic) Hallux limitus of left foot (Chronic) Type 2 diabetes mellitus with diabetic polyneuropathy (Chronic) Malnutrition (Chronic) Delayed wound healing (Chronic) Assessment: Grade 1 diabetic foot ulcer of left sub first metatarsal head. Diabetes with neuropathy. Hallux limitus left. Delayed healing. Suspected malnutrition Plan: Subcutaneous excisional debridement was performed as noted in the clinical panel. To continue hydrogel with collagen dressing changes daily; this is applied today. I reviewed and discussed her case today. To continue strict offloading with surgical shoe and dual density offloading Plastizote liners with pocket. To place most of her weight on her heel. She was reassured no local signs of infection are noted today and she will continue to monitor for this. I recommended lab panel screening including CBC and CMP to better understand her medical status. Her self-reported last hemoglobin A1c level was obtained in December at 6.0%. Noninvasive vascular studies were also ordered including ABIs segmental pressure and systolic toe pressure and she will get this scheduled this upcoming week. To continue with nutritional supplementation. She was unable to obtain Richard due to cost and lack of insurance coverage. She has been taking Glucerna and she is advised to take 1-2 drinks twice daily. I answered all of her questions. To return to clinic in 1 week or call sooner should any questions or concerns.
--- NOTE | 2018-02-16 14:38 | HP.PCM_ITS ---
(1) Chronic ulcer of left foot with fat layer exposed Status: Chronic Current Visit: Yes Code(s): L97.522 - Non-pressure chronic ulcer of other part of left foot with fat layer exposed (2) Hallux limitus of left foot Status: Chronic Current Visit: Yes Code(s): M20.5X2 - Other deformities of toe(s) (acquired), left foot (3) Type 2 diabetes mellitus with diabetic polyneuropathy Status: Chronic Current Visit: Yes Code(s): E11.42 - Type 2 diabetes mellitus with diabetic polyneuropathy (4) Malnutrition Status: Chronic Current Visit: Yes Code(s): E46 - Unspecified protein- calorie malnutrition (5) Delayed wound healing Status: Chronic Current Visit: Yes Code(s): T14.8XXD - Other injury of unspecified body region, subsequent encounter History of Present Illness Date of Service: 02/16/18 Chief Complaint: Left foot ulcer History of Wound: This 57-year-old female with multiple comorbidities follows up at the wound care center for follow-up of left foot ulcer. This has been intermittent and chronic. She was recently seen at the foot and ankle center and was referred here for continued advanced care. She has been changing the dressing daily with hydrogel with collagen. She wears an offloading shoe with Plastizote pocket offloading minor. She takes Glucerna protein supplements daily and was not able to get the Richard covered that was initially recommended. She denies redness or foot pain. She denies fever, chill, nausea, vomiting, loss of appetite. She denies claudication. She does have rest paresthesias that is consistent with neuropathy. Past Medical History Past Medical History: Chronic Problems Chronic ulcer of left foot with fat layer exposed (Chronic) Hallux limitus of left foot (Chronic) Type 2 diabetes mellitus with diabetic polyneuropathy (Chronic) Malnutrition (Chronic) Delayed wound healing (Chronic) Diabetic neuropathy (Chronic) Diabetes mellitus type 2 in obese (Chronic) Allergies/Adverse Reactions: Allergies isradipine [From [facility]] Allergy (Verified 08/26/17 10:37) Unknown prochlorperazine [From Compazine] Allergy (Verified 08/26/17 10:37) Unknown Home Medications: Ambulatory Orders Medication Instructions Recorded Amlodipine [Norvasc] 5 mg PO DAILY 08/26/17 Enalapril Maleate [Vasotec] 20 mg PO BID 08/26/17 Meloxicam 15 mg PO DAILY 08/26/17 Metformin HCl [Metformin HCl ER] 500 mg PO BID 08/26/17 Metoprolol Succinate 100 mg PO BID 08/26/17 Multivitamin [Daily Multiple 1 each PO DAILY 08/26/17 Vitamin] Tizanidine HCl 4 mg PO QHS PRN PRN 08/26/17 Triamcinolone Acetonide [Kenalog] 100 gm TP BID 08/26/17 Gabapentin [Neurontin] 200 mg PO TID 02/16/18 Smoking Status: Never smoker Review of Systems Constitutional: Denies: Chills, Fever, Weakness HEENT: Denies: Hard of Hearing Cardiovascular: Denies: Chest Pain, Claudication Respiratory: Denies: Shortness of Breath Gastrointestinal: Denies: Nausea, Vomiting Musculoskeletal: Denies: Foot Pain, Joint swelling, Joint Tenderness Skin: Reports: Skin Changes, Wounds Neurological: Reports: Balance problems, Numbness, Tingling - Physical Exam Vital Signs Temp Pulse Resp BP 97 F L 62 18 182/95 H 02/16/18 13:41 02/16/18 13:41 02/16/18 13:41 02/16/18 13:41 General: Alert, Oriented x3, Cooperative HEENT: Atraumatic Extremities: No cyanosis, Capillary Refill Less than 3 Seconds - All digits left foot, No Calf Tenderness - Negative Ghazal and Cramer sign bilateral, Diminished Peripheral Pulses - 2 out of 4 DP pulse in 1 out of 4 PT pulse left lower extremity Skin: Ulcer/ Wound - No purulence, no erythema, streaking, no odor, no acute infection left foot. Her skin is atrophic and hairless. The wound bed sub- first metatarsal head has granulation tissue base with no deep capsular bone noted. Wound Measurements and Assessment WC - Nurse 1 - General Ulcer Measurement Start: 02/16/18 13:40 Freq: Status: Active Protocol: Activity Type Activity Date Activity User E-Sign Co-Sign Detail Recorded Client Recorded Date Recorded By Document 02/16/18 13:41 RB [id number] 02/16/18 13:49 RB 02/16/18 13:41 Wound Center Nurse 1 [Ulcer Assessment] 2. L plantar met head -Combined with other wound No -Current Size (cm) - Length 0.1 -Current Size (cm) - Width 0.1 -Current Size (cm) - Depth 0.1 -Total Square Cm 0.01 -Photo Taken Yes -Epithelialization Medium 34-66% -Tunneling No -Undermining/Tunneling No -Circular Undermining No -Classification - Thickness Full Thickness without Exposed Support Structure -Exudate Amt Small (1-33%) -Exudate Type Serosanguineous -Wound Margin Distinct, Outline Attached -Granulation Amt Small (1-33%) -Granulation Quality Warner -Slough/Fibrin Yes -Necrosis Amt Small (1-33%) -Necrotic Tissue Type Adherent Slough -Structure Exposed N/A -Texture (Gisella-wound Skin Appearance) Assessed Callus -Moisture (Gisella-wound Skin Appearance Assessed ) -Color (Gisella-wound Skin Appearance) Assessed -Temperature (Gisella-wound Skin No Abnormality Appearance) (Pt Warm) -Tenderness on Palpation (Gisella-wound No Skin Appearance) -Ulcer Cleansing Rinsed/ Irrigated with Saline -Foul Odor after Cleansing No -Anesthetic Used 5% Lidocaine Gel [Edema Assessment] -Lower Limb Edema Present Yes -Right Calf (cm) 36 -Right Ankle (cm) 20.8 -Left Calf (cm) 36 -Left Ankle (cm) 19.5 WC - Nurse 2 - General Ulcer CM Notes Start: 02/16/18 13:40 Freq: Status: Active Protocol: Activity Type Activity Date Activity User E-Sign Co-Sign Detail Recorded Client Recorded Date Recorded By Document 02/16/18 14:09 [email or web address] [id number] 02/16/18 14:10 AMGO 02/16/18 14:09 Wound Center Nurse 2 [Procedure/Treatment] 2. L plantar met head -Time 14:09 -Correct Patient Yes -Correct Side, Site, Position Yes -Correct Procedure Yes -Procedure Performed Yes -Type of Procedure Debridement -Clinical Debridement Subcutaneous -Post Debridement Size (cm) - Length 0.3 -Post Debridement Size (cm) - Width 0.2 -Post Debridement Size (cm) - Depth 0.2 -Total Square Cm 0.06 -Wound/Ulcer Outcome Not Healed -Ulcer Cleansing Rinsed/ Irrigated with Saline -Foul Odor after Cleansing No -Bioengineered Tissue No -Bleeding Controlled with Pressure -Treatment Response Procedure Tolerated Well [See Physician Procedure note for Specifics] Pain Scale: 0-10 Numeric [Pain] -Is Patient Pain Free? Yes Musculoskeletal: No Tenderness to Palpation of Joints or Extremities, Muscle Wasting, - - Decreased light of first metatarsophalangeal joint left foot. Her offloading surgical shoe with dual density offloading pocket is noted to left lower extremity Neurological: - - Lack of epicritic sensation light touch consistent with neuropathy Psych/Mental Status: Normal Affect, Appropriate Debridement Note Post-Debridement Measurements/Treatment WC - Nurse 2 - General Ulcer CM Notes Start: 02/16/18 13:40 Freq: Status: Active Protocol: Activity Type Activity Date Activity User E-Sign Co-Sign Detail Recorded Client Recorded Date Recorded By Document 02/16/18 14:09 [email or web address] [id number] 02/16/18 14:10 MAGO 02/16/18 14:09 Wound Center Nurse 2 2. L plantar met head -Time 14:09 -Correct Patient Yes -Correct Side, Site, Position Yes -Correct Procedure Yes -Procedure Performed Yes -Type of Procedure Debridement -Clinical Debridement Subcutaneous -Post Debridement Size (cm) - Length 0.3 -Post Debridement Size (cm) - Width 0.2 -Post Debridement Size (cm) - Depth 0.2 -Total Square Cm 0.06 -Wound/Ulcer Outcome Not Healed -Ulcer Cleansing Rinsed/ Irrigated with Saline -Foul Odor after Cleansing No -Bioengineered Tissue No -Bleeding Controlled with Pressure -Treatment Response Procedure Tolerated Well Pain Scale: 0-10 Numeric Is Patient Pain Free? Yes Wound debrided: sub first metatarsal head Laterality: Left Wound Grade/Stage: grade 1 Type of Debridement: Excisional debridement Anesthesia Used: 5% Lidocaine Gel Depth: in the subcutaneous layer Percentage of wound debrided: 100 Instrument Used: #15 blade Tissue Removed: fibrous, devitalized subcutaneous, biofilm, slough Severity: Fat Layer Exposed Amount of bleeding with debridement: Mild Bleeding Controlled with: Pressure Patient tolerated procedure well Assessment/Plan Active Problems Chronic ulcer of left foot with fat layer exposed (Chronic) Hallux limitus of left foot (Chronic) Type 2 diabetes mellitus with diabetic polyneuropathy (Chronic) Malnutrition (Chronic) Delayed wound healing (Chronic) Assessment: Grade 1 diabetic foot ulcer of left sub first metatarsal head. Diabetes with neuropathy. Hallux limitus left. Delayed healing. Suspected malnutrition Plan: Subcutaneous excisional debridement was performed as noted in the clinical panel. To continue hydrogel with collagen dressing changes daily; this is applied today. I reviewed and discussed her case today. To continue strict offloading with surgical shoe and dual density offloading Plastizote liners with pocket. To place most of her weight on her heel. She was reassured no local signs of infection are noted today and she will continue to monitor for this. I recommended lab panel screening including CBC and CMP to better understand her medical status. Her self-reported last hemoglobin A1c level was obtained in December at 6.0%. Noninvasive vascular studies were also ordered including ABIs segmental pressure and systolic toe pressure and she will get this scheduled this upcoming week. To continue with nutritional supplementation. She was unable to obtain Richard due to cost and lack of insurance coverage. She has been taking Glucerna and she is advised to take 1- 2 drinks twice daily. I answered all of her questions. To return to clinic in 1 week or call sooner should any questions or concerns.
[2018-02-16 16:50] LABS: Absolute Lymphocyte Count 2.38 X10^3/ul (0.83-4.51); Absolute Neutrophil Count 3.7 X10^3/uL (2.0-7.7); Basophil# 0.02 X10^3/uL; Basophil% 0.3 % (0-1); Eosinophil# 0.08 X10^3/uL; Eosinophils% 1.2 % (0-5); Hematocrit 41.3 % (37-47); Hemoglobin 13.8 g/dl (12.0-15.0); Lymphocyte # 2.38 X10^3/ul (4.0); Lymphocyte % 34.8 % (19-41); Mean Corp Hgb Conc 33.4 g/gl (32-36); Mean Corpuscular Hgb 29.7 pg (27.0-32.0); Mean Corpuscular Volume 88.8 fL (81-99); Mean Platelet Vol. 11.1 fl (6.2-12.0); Monocyte# 0.63 X10^3/uL; Monocyte% 9.2 % (0-10); Neutrophil # 3.71 X10^3/uL (2.7-7.7); Neutrophil % 54.4 % (47-70); Platelet Count 260 K/mm3 (150-450); RBC Distribution Width CV 12.6 % (11.6-14.6); RBC Distribution Width SD 40.8 fl (35.1-43.9); Red Blood Count 4.65 M/mm3 (4.2-5.4); White Blood Count 6.8 K/mm3 (4.4-11.0)
[2018-02-16 16:52] LABS: POSITIVE COUNT NO; POSITIVE DIFFERENTIAL NO; POSITIVE MORPHOLOGY NO
[2018-02-16 16:55] LABS: ALB/GLOB Ratio 0.9 RATIO (0.9-2.4); AST(SGOT) 27 U/L (15-37); Alanine Aminotransfer ALT/SGPT 40 U/L (13-56); Alkaline Phosphatase 89 U/L (45-117); Anion Gap 6 (5-15); BUN 10 mg/dL (7-18); BUN/Creat Ratio 13.4 RATIO (10-20); Calcium,Total 9.1 mg/dL (8.5-10.1); Chloride 104 mmol/L (98-107); Creatinine, Serum 0.75 mg/dL (0.55-1.02); EST Glomerular Filtration Rate 84 mL/min (>60); Est Glom Filt Rate - Afr Amer 102 mL/min (>60); Globulin 4.4 g/dL (2.2-4.2); Glucose 110 mg/dL (74-106); Potassium 4.2 mmol/L (3.5-5.1); Protein, Total 8.4 g/dL (6.4-8.2); Sodium Level 139 mmol/L (136-145)
[2018-02-23 11:36] VITALS: BP 166/90; PULSE 76; RESP 18; TEMP 37.4
--- NOTE | 2018-02-23 12:26 | PN.PCM_ITS ---
(1) Chronic ulcer of left foot with fat layer exposed Status: Chronic Current Visit: Yes Code(s): L97.522 - Non-pressure chronic ulcer of other part of left foot with fat layer exposed (2) Hallux limitus of left foot Status: Chronic Current Visit: Yes Code(s): M20.5X2 - Other deformities of toe(s) (acquired), left foot (3) Type 2 diabetes mellitus with diabetic polyneuropathy Status: Chronic Current Visit: Yes Code(s): E11.42 - Type 2 diabetes mellitus with diabetic polyneuropathy (4) Malnutrition Status: Chronic Current Visit: Yes Code(s): E46 - Unspecified protein- calorie malnutrition (5) Delayed wound healing Status: Chronic Current Visit: Yes Code(s): T14.8XXD - Other injury of unspecified body region, subsequent encounter Type of Wound Date of Service: 02/23/18 Chief Complaint: Left foot ulcer History of Wound: This 57-year-old female with multiple comorbidities follows up at the wound care center for follow-up of left foot ulcer. This has been intermittent and chronic. She was recently seen at the foot and ankle center and was referred here for continued advanced care. She has been changing the dressing daily with hydrogel with collagen. She wears an offloading shoe with Plastizote pocket offloading minor. She takes Glucerna protein supplements daily. She denies redness or foot pain or drainage this past week. She denies fever, chill, nausea, vomiting, loss of appetite. She completed her vascular studies and labs as advised. She would like to review the results today. Progress of Wound: Healed - Physical Exam Vital Signs Temp Pulse Resp BP 99.3 F H 76 18 166/90 H 02/23/18 11:36 02/23/18 11:36 02/23/18 11:36 02/23/18 11:36 General: Alert, Oriented x3, Cooperative Extremities: No cyanosis, No edema, Capillary Refill Less than 3 Seconds, No Calf Tenderness, Diminished Peripheral Pulses, - - Prominent sub-first metatarsal head with dorsal contraction of hallux that is reducible left lower extremity Skin: Ulcer/ Wound - No purulence, no erythema, streaking, no odor, no infection. There is full epithelialization noted at the recent wound site upon callus debridement. The peripheral skin is atrophic. This wound site is healed Wound Measurements and Assessment WC - Nurse 1 - General Ulcer Measurement Start: 02/16/18 13:40 Freq: Status: Active Protocol: Activity Type Activity Date Activity User E-Sign Co-Sign Detail Recorded Client Recorded Date Recorded By Document 02/23/18 11:36 DL [id number] 02/23/18 11:41 RADHA 02/23/18 11:36 Wound Center Nurse 1 [Ulcer Assessment] 2. L plantar met head -Combined with other wound No -Current Size (cm) - Length 0.2 -Current Size (cm) - Width 0.2 -Current Size (cm) - Depth 0.1 -Total Square Cm 0.04 -Photo Taken No -Tunneling No -Undermining/Tunneling No -Circular Undermining No -Classification - Thickness Full Thickness without Exposed Support Structure -Exudate Amt Small (1-33%) -Exudate Type Serosanguineous -Wound Margin Thickened -Granulation Amt Medium (34-66%) -Granulation Quality [facility] -Slough/Fibrin Yes -Necrosis Amt Small (1-33%) -Necrotic Tissue Type Adherent Slough -Structure Exposed N/A -Texture (Gisella-wound Skin Appearance) Assessed Callus -Moisture (Gisella-wound Skin Appearance Assessed ) -Color (Gisella-wound Skin Appearance) Assessed -Temperature (Gisella-wound Skin No Abnormality Appearance) (Pt Warm) -Tenderness on Palpation (Gisella-wound No Skin Appearance) -Ulcer Cleansing Rinsed/ Irrigated with Saline -Foul Odor after Cleansing No -Anesthetic Used 5% Lidocaine Gel WC - Nurse 2 - General Ulcer CM Notes Start: 02/16/18 13:40 Freq: Status: Active Protocol: Activity Type Activity Date Activity User E-Sign Co-Sign Detail Recorded Client Recorded Date Recorded By Document 02/23/18 12:11 MAGO [id number] 02/23/18 12:12 MAGO 02/23/18 12:11 Wound Center Nurse 2 [Procedure/Treatment] -Correct Patient No -Correct Side, Site, Position No -Correct Procedure No -Procedure Performed No -Post Debridement Size (cm) - Length 0 -Post Debridement Size (cm) - Width 0 -Post Debridement Size (cm) - Depth 0 -Total Square Cm 0 -Wound/Ulcer Outcome Healed- Epithelialized [See Physician Procedure note for Specifics] Pain Scale: 0-10 Numeric [Pain] -Is Patient Pain Free? Yes Musculoskeletal: No Tenderness to Palpation of Joints or Extremities, Muscle Wasting Neurological: - - Lack of epicritic sensation to light touch consistent with neuropathy left foot Psych/Mental Status: Normal Affect, Appropriate Debridement Note Post-Debridement Measurements/Treatment WC - Nurse 2 - General Ulcer CM Notes Start: 02/16/18 13:40 Freq: Status: Active Protocol: Activity Type Activity Date Activity User E-Sign Co-Sign Detail Recorded Client Recorded Date Recorded By Document 02/16/18 14:09 [id number] 02/16/18 14:10 Document 02/23/18 12:11 [id number] 02/23/18 12:12 02/16/18 02/23/18 14:09 12:11 Wound Center Nurse 2 2. L plantar met head -Time 14:09 -Correct Patient Yes No -Correct Side, Site, Position Yes No -Correct Procedure Yes No -Procedure Performed Yes No -Type of Procedure Debridement -Clinical Debridement Subcutaneous -Post Debridement Size (cm) - Length 0.3 0 -Post Debridement Size (cm) - Width 0.2 0 -Post Debridement Size (cm) - Depth 0.2 0 -Total Square Cm 0.06 0 -Wound/Ulcer Outcome Not Healed Healed- Epithelialized -Ulcer Cleansing Rinsed/ Irrigated with Saline -Foul Odor after Cleansing No -Bioengineered Tissue No -Bleeding Controlled with Pressure -Treatment Response Procedure Tolerated Well Pain Scale: 0-10 Numeric Is Patient Pain Free? Yes Yes Wound debrided: sub first metatarsal head Laterality: Left No debridement was completed today - The ulcer site has healed today Assessment/Plan Active Problems Chronic ulcer of left foot with fat layer exposed (Chronic) Hallux limitus of left foot (Chronic) Type 2 diabetes mellitus with diabetic polyneuropathy (Chronic) Malnutrition (Chronic) Delayed wound healing (Chronic) Assessment: Grade 1 diabetic foot ulcer of left sub first metatarsal head, healed today. Diabetes with neuropathy. Hallux limitus left. Delayed healing. Suspected malnutrition Plan: I reviewed and discussed her case. To continue strict offloading with surgical shoe and dual density offloading Plastizote liners with pocket. To place most of her weight on her heel. To follow-up within 2 weeks at the foot and ankle center which I help initiate her ordering extra-depth diabetic shoes with offloading dual density Plastizote liners with the pocket at this recently healed ulcer site. She was reassured no local signs of infection are noted today and she will continue to monitor for this. The lab results were reviewed ; CBC and CMP there was no leukocytosis noted, kidney function appears to be normal, and her albumin level is 4.0. Her self-reported last hemoglobin A1c level was obtained in December at 6.0%. Noninvasive vascular studies were completed this morning and I discussed her results. She has bilateral triphasic waveforms at the ankle level and the ABIs and toe brachial indices are also normal. To discontinue the nutritional supplementation drinks due to recent wound closure. I answered all of her questions. She is discharged from the wound care center at this time and will follow-up at the foot and ankle center as previously mentioned.
--- NOTE | 2018-02-23 12:38 | LEAS ---
Arterial Study - Arterial Study Arterial Study: This is a 57-year-old female with a history of diabetes mellitus and hypertension. The patient presents with a chronic nonhealing wound to the left lower extremity. Suspecting the presence of atherosclerotic peripheral arterial occlusive disease, the patient was brought to the noninvasive vascular laboratory at this time for the purpose of bilateral noninvasive lower extremity arterial assessment. Doppler signal assessment was used to evaluate the pulses at ankle level bilaterally. The posterior tibial and dorsalis pedis pulses were triphasic bilaterally. Segmental limb pressures were obtained bilaterally. The right ankle pressure, as determined by posterior tibial pulse, was measured at 194 mmHg. The right ankle pressure, as determined by dorsalis pedis pulse, was measured at 183 mmHg. The right digital pressure was measured at 121 mmHg. The left ankle pressure, as determined by posterior tibial pulse, was measured at 197 mmHg. The left ankle pressure, as determined by dorsalis pedis pulse, was measured at 189 mmHg. The left digital pressure was measured at 157 mmHg. Pulse-volume recordings were obtained bilaterally and segmentally. Waveform amplitudes appeared to be satisfactory at all levels bilaterally, including low thigh, calf, ankle, and digital levels. Resting ankle-brachial indices were calculated bilaterally. The resting right ankle-brachial index was calculated to be 1.19. The resting left ankle-brachial index was calculated to be 1.21. Digital-brachial indices were calculated bilaterally. The right digital-brachial index was calculated to be 0.74. The left digital-brachial index was calculated to be 0.96. Impression: Based upon the findings of this resting noninvasive lower extremity arterial study, there is no evidence of significant atherosclerotic peripheral arterial occlusive disease in the lower extremities bilaterally. Triphasic waveforms were noted at ankle level bilaterally. Resting ankle-brachial indices were bilaterally normal. Digital-brachial indices were also normal bilaterally. In summary, this represents a normal resting noninvasive lower extremity arterial study bilaterally.
--- NOTE | 2018-02-23 12:44 | LEAS_ITS ---
Arterial Study - Arterial Study Arterial Study: This is a 57-year-old female with a history of diabetes mellitus and hypertension. The patient presents with a chronic nonhealing wound to the left lower extremity. Suspecting the presence of atherosclerotic peripheral arterial occlusive disease, the patient was brought to the noninvasive vascular laboratory at this time for the purpose of bilateral noninvasive lower extremity arterial assessment. Doppler signal assessment was used to evaluate the pulses at ankle level bilaterally. The posterior tibial and dorsalis pedis pulses were triphasic bilaterally. Segmental limb pressures were obtained bilaterally. The right ankle pressure, as determined by posterior tibial pulse, was measured at 194 mmHg. The right ankle pressure, as determined by dorsalis pedis pulse, was measured at 183 mmHg. The right digital pressure was measured at 121 mmHg. The left ankle pressure, as determined by posterior tibial pulse, was measured at 197 mmHg. The left ankle pressure, as determined by dorsalis pedis pulse, was measured at 189 mmHg. The left digital pressure was measured at 157 mmHg. Pulse-volume recordings were obtained bilaterally and segmentally. Waveform amplitudes appeared to be satisfactory at all levels bilaterally, including low thigh, calf, ankle, and digital levels. Resting ankle-brachial indices were calculated bilaterally. The resting right ankle-brachial index was calculated to be 1.19. The resting left ankle- brachial index was calculated to be 1.21. Digital-brachial indices were calculated bilaterally. The right digital- brachial index was calculated to be 0.74. The left digital-brachial index was calculated to be 0.96. Impression: Based upon the findings of this resting noninvasive lower extremity arterial study, there is no evidence of significant atherosclerotic peripheral arterial occlusive disease in the lower extremities bilaterally. Triphasic waveforms were noted at ankle level bilaterally. Resting ankle-brachial indices were bilaterally normal. Digital-brachial indices were also normal bilaterally. In summary, this represents a normal resting noninvasive lower extremity arterial study bilaterally.
== END 2018-03-05 23:59 ==
LOC: WC 11:45
PROVIDERS: Family Provider Family Medicine; PCP Family Medicine; Visit Provider Podiatrist
DX: E11.621 Type 2 diabetes mellitus with foot ulcer (principal); L97.522 Non-pressure chronic ulcer of other part of left foot with fat layer exposed; M20.5X2 Other deformities of toe(s) (acquired), left foot; E11.42 Type 2 diabetes mellitus with diabetic polyneuropathy
CPT/HCPCS: 11042; 80053; 85025; 93923; 99212; G0463